=== PATIENT | female | born 1960 | race Caucasian/White ===

== ENCOUNTER 2019-07-25 10:24 | Observation (INO) ==
[2019-07-20 12:10] LABS: Basophils # (auto) 0.02 K/uL (0-0.2); Basophils % (auto) 0.5 %; Eosinophils # (auto) 0.12 K/uL (0-0.5); Eosinophils % (auto) 3.1 %; Hematocrit (blood only) 33.5 % (37-47); Hemoglobin 10.9 g/dL (12.0-16.0); Immature Granulocytes # (auto) 0.02 K/uL (0.00-0.02); Immature Granulocytes % (auto) 0.5 %; Lymphocytes % (auto) 28.1 %; Mean Corpuscular Hemoglobin 31.7 pg (25-34); Mean Corpuscular Hgb Conc 32.5 g/dL (32-36); Mean Corpuscular Volume 97.4 fL (80-100); Mean Platelet Volume 9.9 fL (7.4-10.4); Monocytes # (auto) 0.51 K/uL (0.11-0.59); Neutrophils # (auto) 2.14 K/uL (1.4-6.5); Neutrophils % (auto) 54.8 %; Platelet Count 334 K/uL (130-400); RDW Coefficient of Variation 14.6 % (11.5-14.5); RDW Standard Deviation 52.2 fL (36.4-46.3); Red Blood Count 3.44 M/uL (4.2-5.4); White Blood Count 3.91 K/uL (4.8-10.8)
[2019-07-20 12:37] LABS: BUN Creatinine Ratio 16.2 (10-20); Blood Urea Nitrogen 28 mg/dl (7-18); Calcium 9.2 mg/dl (8.5-10.1); Carbon Dioxide 26 mmol/L (21-32); Chloride 110 mmol/L (98-107); Est GFR (African American) 35.8; Est GFR (Non-African American) 30.9; Glucose 98 mg/dl (70-99); Potassium 4.2 mmol/L (3.5-5.1); Sodium 139 mmol/L (136-145)
[2019-07-20 13:05] LABS: Appearance Urine Clear (Clear); Bacteria Urine Automated Negative (Negative); Bilirubin Urine Negative (Negative); Blood Urine Negative (Negative); Color Urine Yellow; Epithelial Cell Urine Auto >30 /lpf (0-5); Glucose Urine UA Negative (Negative); Ketones Urine Negative (Negative); Leukocyte Esterase Urine Trace (Negative); Nitrite Urine Negative (Negative); Protein Urine Negative (Negative); RBC Urine Automated 0-4 /hpf (0-4); Specific Gravity Urine 1.019 (1.000-1.030); Urobilinogen Urine Negative (Negative)
--- NOTE | 2019-07-23 11:56 | Anesthesiology Consultation ---
Date of Service July 23, 2019 Assessment & Plan (1) Encounter for pre-operative examination: Chart Review Chart Review: Acceptable Risk for Surgery and Patient NOT seen in Pre Admission Testing Preop labs showed decreased renal function (patient at baseline) as well as new onset mild anemia and leukopenia. Will leave to anesthesia discretion if repeat CBC needed DOS. Last seen by nephrology 06/05/19= creat typically 1.7-1.8 secondary to IgA nephropathy. Pt is currently back to baseline after acute kidney injury several months ago. Will continue to monitor labs, BP, volume status. F/u six months Consults Requested none History Surgery Operation Date: 07/25/19 11:35 Proposed Procedures p Right L5-S1 Microdiscecotomy - Connor Regan, Height/Weight Height: 5 ft 6.5 in Weight: 70.307 kg Allergies Allergy/AdvReac Type Severity Reaction Status Date / Time No Known Drug Allergies Allergy Verified 07/25/19 10:52 Medications Home Medications Medication Instructions Recorded Confirmed Last Taken promethazine 25 mg PO Q6H PRN 10/23/18 07/25/19 03/27/19 08:00 linaclotide 145 mcg capsule 145 mcg PO DAILY PRN #90 cap 12/26/18 07/25/19 07/11/19 diclofenac sodium 2 g TOPICAL QID PRN 03/26/19 07/25/19 Unknown verapamil 20 mg PO 1200 03/26/19 07/23/19 03/27/19 08:00 valacyclovir 1 gram tablet 1,000 mg PO DAILY PRN #30 tab 03/30/19 07/25/19 Unknown ergocalciferol (vitamin D2) 1,250 50,000 units PO WEEKLY #12 cap 06/05/19 07/25/19 07/24/19 12:00 mcg (50,000 unit) capsule medical marijuana #1 ea 06/12/19 07/23/19 Unknown hydrocodone 5 mg-acetaminophen 325 1 tab PO BID PRN #30 tab 06/13/19 07/25/19 Unknown mg tablet mupirocin calcium 2 % topical cream 1 applic TOPICAL BID PRN #30 gm 06/20/19 07/25/19 Unknown trazodone 100 mg tablet 200 mg PO HS #180 tab 07/04/19 07/25/19 07/24/19 23:30 doxycycline hyclate 100 mg PO QAM 07/23/19 07/25/19 Unknown fenofibrate nanocrystallized 145 mg PO 1200 07/23/19 07/25/19 07/24/19 12:00 gabapentin 300 mg PO BID 07/23/19 07/25/19 07/24/19 23:30 lisinopril 10 mg PO 1200 07/23/19 07/25/19 07/24/19 12:00 omeprazole 40 mg PO 1200 07/23/19 07/25/19 07/24/19 12:00 venlafaxine 150 mg PO 1200 07/23/19 07/25/19 07/24/19 12:00 Active Medications Generic Name Dose Route Start Last Admin Trade Name Freq PRN Reason Stop Dose Admin Acetaminophen 1,000 mg 07/25/19 06:00 07/25/19 11:03 Tylenol PO 07/25/19 18:00 1,000 mg PREOP NORMA Administration Celecoxib 200 mg 07/25/19 06:00 07/25/19 11:03 Celebrex PO 07/25/19 18:00 200 mg PREOP NORMA Administration Dexamethasone 8 mg 07/25/19 06:00 07/25/19 11:03 Decadron PO 07/25/19 18:00 8 mg PREOP NORMA Administration Gabapentin 600 mg 07/25/19 06:00 07/25/19 11:04 Neurontin PO 07/25/19 18:00 600 mg PREOP NORMA Administration Lactated Ringer's 1,000 mls @ 15 mls/hr 07/25/19 06:00 07/25/19 11:03 Lr IV 07/26/19 05:59 15 mls/hr .Q24H NORMA Administration Past Medical History Medical History Anemia Anxiety Chronic back pain CKD (chronic kidney disease), stage III Depression GERD without esophagitis Gout History of anesthesia reaction "has a high tolerance to anesthesia and wakes up during surgery" History of right breast cancer 2004--sx, chemo, radiation Hyperlipidemia Hypertension IgA nephropathy, chronic Lumbar disc herniation Medical marijuana use 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, radiation Psoriatic arthritis hx of- on Cimzia in the past but d/'philip after adenocarcinoma of palate Raynaud's phenomenon without gangrene Tachycardia HAPPENED X1 PER PATIENT NONE SINCE Thyroid nodule Past Family History Family History Mother Family history of diabetes mellitus Myocardial infarction Sister Family history of diabetes mellitus Grandfather (Paternal) Family history of diabetes mellitus Grandmother (Paternal) Family history of diabetes mellitus Aunt Family history of diabetes mellitus Uncle Family hx of colon cancer Unknown Sinusitis Hypertension Cardiac disorder Cancer Colon cancer Lymphoma Myocardial infarction Father Lymphoma Other No family history of adverse response to anesthesia Past Surgical History Surgical History History of Achilles tendon repair x4--right foot--hardware in place History of Achilles tendon repair x1 on left History of carpal tunnel surgery of right wrist History of cholecystectomy History of colonoscopy with polypectomy History of dilatation and curettage History of esophageal dilatation History of esophagogastroduodenoscopy (EGD) History of hysterectomy History of lumpectomy of right breast 2003/2005 (benign at that time) History of open reduction and internal fixation (ORIF) procedure right wrist--hardware removed History of phacoemulsification of cataract of both eyes with intraocular lens implantation History of right breast biopsy malignant History of surgery excision of cancer of soft palate History of tonsillectomy Status post biopsy of kidney Status post biopsy of thyroid gland benign nodule Social History Smoking Status: Former smoker Do You Dip or Chew Tobacco: No Smoking End Date: 10 YRS AGO Hx Alcohol Use: No Alcohol type: beer alcohol intake frequency: holidays/special occasions only Hx Substance Use: No substance use type: marijuana Substance Use Type Other:: HAS MEDICAL MARIJUANA CARD> USES AT HS Last Used Substance: Days (ago) Physical Exam Vital Signs Last Vital Signs Temp 36.7 C 07/25/19 11:07 Pulse 88 07/25/19 11:07 Resp 18 07/25/19 11:07 BP 105/67 07/25/19 11:07 Pulse Ox 94 07/25/19 11:07 Testing Laboratory Results 07/20/19 11:42 07/20/19 11:42 Urine Color Yellow 07/20/19 11:52 Urine Appearance Clear (Clear) 07/20/19 11:52 Urine pH 5.0 (4.5-7.5) 07/20/19 11:52 Ur Specific [place] 1.019 (1.000-1.030) 07/20/19 11:52 Urine Protein Negative (Negative) 07/20/19 11:52 Urine Glucose (UA) Negative (Negative) 07/20/19 11:52 Urine Ketones Negative (Negative) 07/20/19 11:52 Urine Nitrite Negative (Negative) 07/20/19 11:52 Ur Leukocyte Esterase Trace (Negative) H 07/20/19 11:52 Urine WBC (Auto) 1-5 /hpf (0-5) 07/20/19 11:52 Urine RBC (Auto) 0-4 /hpf (0-4) 07/20/19 11:52 U Hyaline Cast (Auto) 1-5 /lpf (0-5) 07/20/19 11:52 U Epithel Cells (Auto) >30 /lpf (0-5) H 07/20/19 11:52 Urine Bacteria (Auto) Negative (Negative) 07/20/19 11:52 Electrocardiogram Date: 07/20/19 Findings: + NSR @ (66) Chest X-Ray Date: 07/20/19 Findings: + NAD
--- NOTE | 2019-07-23 12:38 | History & Physical Report ---
Date of Service July 23, 2019 Assessment & Plan (1) Lumbar disc herniation with radiculopathy: This time the patient has noted steady decline in her function and strength involving the right lower extremity. She is unable to ambulate using a wheelchair most of the time. She has marked strength deficits that she states are progressive in nature affecting the right lower extremity. Subsequently I am recommending urgent lumbar laminotomy and decompression of the nerves. Hopefully urgent decompression will allow the nerves to recover with time and physical therapy that she will be up ambulate independently in the future. Course benefits pros cons alternatives were outlined in detail. We are planning for an L5-S1 lumbar laminotomy on the right. Present on Admission?: Yes History of Present Illness Chief Complaint: Back with left leg pain and weakness Primary Care Provider: Danilo Freeman, DO * This is a 59-year-old female that presents with's severe right leg pain. This began several months ago and has progressed. She is now unable to ambulate secondary to the leg giving way. She has undergone 3 epidural injections which provided very minimal relief. Allergies Allergy/AdvReac Type Severity Reaction Status Date / Time No Known Drug Allergies Allergy Verified 07/23/19 10:46 Home Medications Home Medications Medication Instructions Recorded Confirmed Type promethazine 25 mg PO Q6H PRN 10/23/18 07/23/19 History linaclotide 145 mcg capsule 145 mcg PO DAILY PRN #90 cap 12/26/18 07/23/19 Rx diclofenac sodium 2 g TOPICAL QID PRN 03/26/19 07/23/19 History verapamil 20 mg PO 1200 03/26/19 07/23/19 History valacyclovir 1 gram tablet 1,000 mg PO DAILY PRN #30 tab 03/30/19 07/23/19 Rx ergocalciferol (vitamin D2) 1,250 50,000 units PO WEEKLY #12 cap 06/05/19 07/23/19 Rx mcg (50,000 unit) capsule medical marijuana #1 ea 06/12/19 07/23/19 History hydrocodone 5 mg-acetaminophen 325 1 tab PO BID PRN #30 tab 06/13/19 07/23/19 Rx mg tablet mupirocin calcium 2 % topical cream 1 applic TOPICAL BID PRN #30 gm 06/20/19 07/23/19 Rx trazodone 100 mg tablet 200 mg PO HS #180 tab 07/04/19 07/23/19 Rx doxycycline hyclate 100 mg PO QAM 07/23/19 07/23/19 History fenofibrate nanocrystallized 145 mg PO 1200 07/23/19 07/23/19 History gabapentin 300 mg PO BID 07/23/19 07/23/19 History lisinopril 10 mg PO 1200 07/23/19 07/23/19 History omeprazole 40 mg PO 1200 07/23/19 07/23/19 History venlafaxine 150 mg PO 1200 07/23/19 07/23/19 History Past Med/Surg History Medical History (Updated 07/23/19 @ 12:36 by Connor Regan DO) Anemia Anxiety Chronic back pain CKD (chronic kidney disease), stage III Depression GERD without esophagitis Gout History of anesthesia reaction "has a high tolerance to anesthesia and wakes up during surgery" History of right breast cancer 2003--sx, chemo, radiation Hyperlipidemia Hypertension IgA nephropathy, chronic Lumbar disc herniation Medical marijuana use 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, radiation Psoriatic arthritis hx of- on Cimzia in the past but d/'philip after adenocarcinoma of palate Raynaud's phenomenon without gangrene Tachycardia HAPPENED X1 PER PATIENT NONE SINCE Thyroid nodule Surgical History History of Achilles tendon repair x4--right foot--hardware in place History of Achilles tendon repair x1 on left History of carpal tunnel surgery of right wrist History of cholecystectomy History of colonoscopy with polypectomy History of dilatation and curettage History of esophageal dilatation History of esophagogastroduodenoscopy (EGD) History of hysterectomy History of lumpectomy of right breast (benign at that time) History of open reduction and internal fixation (ORIF) procedure right wrist--hardware removed History of phacoemulsification of cataract of both eyes with intraocular lens implantation History of right breast biopsy malignant History of surgery excision of cancer of soft palate History of tonsillectomy Status post biopsy of kidney Status post biopsy of thyroid gland benign nodule Family History Mother Family history of diabetes mellitus Myocardial infarction Sister Family history of diabetes mellitus Grandfather (Paternal) Family history of diabetes mellitus Grandmother (Paternal) Family history of diabetes mellitus Aunt Family history of diabetes mellitus Uncle Family hx of colon cancer Unknown Sinusitis Hypertension Cardiac disorder Cancer Colon cancer Lymphoma Myocardial infarction Father Lymphoma Other No family history of adverse response to anesthesia Social History Preferred Language: [place] Communication Ability: Effective Inspector Plug Seam Required: No Beliefs That Will Affect Care: None Current Living Situation: Spouse Feels Safe at Home: Yes Smoking Status: Former smoker Second Hand Exposure: No ; Hx Alcohol Use: No Hx Substance Use: No Physical Exam Physical Exam: On exam patient does present in a wheelchair she is unable to stand without marked support. She exhibits strength deficits the right quadriceps dorsiflexion plantarflexion. Severe deficits to right plantar flexion. The left appears to be 5/5. No marked sensory deficits in the right lower extremity compared to the left. Heart is regular rate and rhythm Lungs clear to auscultation. Results & Data Diagnostic Findings MRI of the lumbar spine does demonstrate evidence of multilevel spondylosis disc protrusion herniation at L3-4 and L5-S1. Axial views demonstrate broad-based disc herniation L5-S1 with severe subarticular stenosis on the right with evidence of encroachment the traversing S1 and exiting L5 nerve root.
[~2019-07-25 10:24] MED LIST: ACETAMINOPHEN 500 MG TAB PO SCH; CEFAZOLIN 1000MG 1,000 MG/7.5 ML SYR IV SCH; CeleBREX 200 MG CAP PO SCH; GABAPENTIN 600 MG DOSE PO SCH; LR 15ML/HR IV SCH; dexAMETHasone 4 MG TAB PO SCH
[2019-07-25] MEDS ORDERED: ONDANSETRON INJ 2 MG/ML 2 ML VIAL IV PRN (12:04)
[2019-07-25] MEDS ORDERED: HYDROmorphone INJ 2 MG/ML SYR/VIAL IV PRN (12:04)
[2019-07-25] MEDS ORDERED: PROMETHAZINE HCL 12.5 MG in SODIUM CHLORIDE 0.9% 50 ML IV PRN (12:04)
[2019-07-25] MEDS ORDERED: ePHEDrine sulfate 50 MG/ML AMP IV PRN (12:04)
[2019-07-25] MEDS ORDERED: METOCLOPRAMIDE HCL INJ 5 MG/ML 2 ML VIAL IV PRN (12:04)
[2019-07-25] MEDS ORDERED: ATROPINE SULFATE 0.1 MG/ML 10ML SYR IV PRN (12:04)
[2019-07-25] MEDS ORDERED: fentaNYL citrate 100 MCG/2 ML VIAL IV PRN (12:04)
--- NOTE | 2019-07-25 13:05 | History & Physical Bridge Note ---
Date of Service July 25, 2019 History & Physical Bridge Note I have examined the patient, reviewed the History & Physical and in the interval since the performance of the History & Physical I have noted the following changes of clinical significance: no changes noted
[2019-07-25] MEDS ORDERED: MIDAZOLAM HCL 1 MG/ML 2ML VIAL ONE (13:22)
[2019-07-25] MEDS ORDERED: fentaNYL citrate 100 MCG/2 ML VIAL ONE ×2 (13:22→14:06)
[2019-07-25] MEDS ORDERED: ONDANSETRON INJ 2 MG/ML 2 ML VIAL ONE (13:23)
[2019-07-25] MEDS ORDERED: NEOSTIGMINE METHYLSULFATE 5 MG/5 ML SYR ONE (13:23)
[2019-07-25] MEDS ORDERED: PROPOFOL IV EMULSION 10 MG/ML 20 ML VIAL IV ONE (13:23)
[2019-07-25] MEDS ORDERED: LIDOCAINE HCL 2% 2 ML VIAL/AMP(20MG/ML) INFIL ONE (13:23)
[2019-07-25] MEDS ORDERED: ROCURONIUM BROMIDE 10 MG/ML 5 ML VIAL ONE (13:23)
[2019-07-25] MEDS ORDERED: GLYCOPYRROLATE 0.2 MG/ML VIAL ONE (13:23)
[2019-07-25] MEDS ORDERED: BACITRACIN INJ 50,000 UNIT VIAL ONE (13:46)
[2019-07-25] MEDS ORDERED: BUPIVACAINE/EPINEPHRINE 0.5% MPF 1:200,000 10 ML VIAL ONE (13:46)
[2019-07-25] MEDS ORDERED: HYDROmorphone INJ 2 MG/ML SYR/VIAL ONE (15:05)
[2019-07-25] MEDS ORDERED: OXYCODONE HCL IR 5 MG TAB (IMMEDIATE RELEASE) PO PRN ×2 (15:27)
[2019-07-25] MEDS ORDERED: HYDROmorphone INJ 0.5 MG/0.5 ML SYR IV PRN ×2 (15:27)
--- NOTE | 2019-07-25 15:27 | Operative Report ---
Post Operative Report Pre & Post Diagnosis Operation Date: 07/25/19 11:35 Pre-Op Diagnosis: Lumbar Disc Herniation Post-Op Diagnosis: Lumbar Disc Herniation I identified the patient and participated in the time-out.: Yes Procedure Operation Date: 07/25/19 11:35 Actual Procedures Laminotomy L5-S1 on the right with medial facetectomy. Surgeon Connor Regan, Boat Oar Maker Carmela Urban Estimated Blood Loss 10 Findings Consistent with Post-Op Diagnosis Specimens None Indications This is a 59-year-old female that presents with severe right leg pain and weakness. She was unable to ambulate using a wheelchair for most of her travel. Subsequently we recommended urgent laminotomy and decompression of the compressed nerve root. Description of Procedure Patient was met with identified informed consent obtained. Patient was then taken to the operative suite underwent an patient placed in a prone position the Brayden table on top of the Reji frame. All bony prominences well-padded eyes inspected to ensure no external pressure placed upon the. This point the lumbar spine was prepped and draped in normal sterile fashion. With the assistance of fluoroscopy identified the L5-S1 disc space and a small midline incision was created overlying his region. Sharp dissection with the assistance of Bovie electrocautery was performed down to and exposing the interlaminar space at L5- S1 on the right. Self-retaining retractors placed. Then performed a small laminotomy including medial facetectomy of L5-S1 the right. I excised the lateral portion of ligamentum flavum to expose it markedly compressed traversing S1 nerve root. I noted significant adhesions to the disc herniation beneath the root. I was able to mobilize it medially with some work and any loose fragments were removed. The root seem to have significant decompression mobilization when I was complete. I then copiously irrigated incision closed with 1 Vicryl in the fascia 2-0 Vicryl subcutaneously and 4 Monocryl for final skin closure. Patient awakened taken to PACU stable condition. Please note Carmela Urban was present at the entire procedure involved the patient positioning complex portions of the surgery and final skin closure. I attest to the content of the Intraoperative Record and any orders documented therein. Any exceptions are noted below.
--- NOTE | 2019-07-25 15:36 | Fluoroscopy Report ---
FL spine 1V any level CLINICAL HISTORY: 59 years-old Female presenting with RIGHT L5-S1 MICRODISCECTOMY. TECHNIQUE: 1 fluoroscopic image(s) recorded as part of an intraoperative procedure. COMPARISON: MR lumbar spine from 03/07/2019. FINDINGS/IMPRESSION: Surgical instrumentation projects over the L5-S1 level. Please see surgical report for further details. Fluoroscopy dosage (mGy): Not available. Fluoroscopy time: 7 seconds. Number or time of high level fluoroscopy (HLF), digital spot, or digital subtraction images: 0. ACT 112: Negative or not required by law. Electronically signed by: Tre Hammonds M.D. 07/25/2019 3:34 PM
[2019-07-25] MEDS ORDERED: HYDROmorphone INJ 1 MG/ML SYRINGE ONE (16:16)
[2019-07-25] MEDS ORDERED: FLOSEAL HEMOSTATIC MATRIX 10ML TOP ONE (16:20)
--- NOTE | 2019-07-25 16:47 | Anesthesiology Progress Note ---
Date of Service July 25, 2019 Anesthesia Post Procedure Vital Signs Vital Signs: Temp Pulse Pulse Resp BP Pulse Ox 07/25/19 16:35 36.4 C L 88 17 114/70 100 07/25/19 16:25 94 H 14 110/64 100 07/25/19 16:15 94 H 13 136/76 100 07/25/19 16:09 36.6 C 82 25 H 126/87 100 07/25/19 11:07 36.7 C 88 18 105/67 94 Pain Intensity Lower Back: Pain Intensity: 7 Transfer of Care Handoff Completed per policy Notes Mental Status: alert / awake / arousable and participated in evaluation Patient Amnestic to Procedure: Yes Nausea / Vomiting: adequately controlled Pain: adequately controlled Airway Patency, RR, SpO2: stable & adequate BP & HR: stable & adequate Hydration State: stable & adequate Anesthetic Complications: no major complications apparent
[2019-07-25] MEDS ORDERED: LINACLOTIDE 72 MCG CAPSULE PO PRN (20:57)
--- NOTE | 2019-07-25 20:59 | History & Physical Report ---
Date of Service July 25, 2019 Assessment & Plan (1) Lumbar disc herniation with radiculopathy: Pt is a 59yo with an extensive PMHx including IgA nephropathy, Hx of breast and soft palate cancer, CKD, lumbar disc herniation who was admitted for observation after being unresponsive after same day surgical laminectomy with Dr. Regan. Of note, she received a total of 4mg of Dilaudid liliam-op. Decreased Consciousness -Hx of pt with decreased consciousness post-op -On exam, pt AAOx3 -likely due to receiving in total Dilaudid 4mg -will admit overnight to tele for observation -q4h vital signs Laminectomy, post-op -Pt had laminectomy with Dr. Regan, same day surgery -will hold narcotics for pain -continue tylenol 1000mg q8h scheduled -continue Toradol 15mg IV q6h PRN- repeat Cr pending. Will discontinue if elevated. CKD -Last noted Cr elevated to 1.75 -continue LR @ 80cc/hr IgA Nephropathy -chronic Depression, Insomnia -continue home venlafaxine and trazodone HTN -continue home verapamil, lisinopril Hx of Cancer -s/p lumpectomy for breast cancer -s/p radiation for soft palate cancer -Hx of thyroid nodules FEN/GI: LR@ 80cc/hr, heart healthy diet DVT prophylaxis: SCDs CODE STATUS: Full Dispo: PCU/tele for q4h vitals/obs Admission and Anticipated Discharge Date Admission Date: 07/25/2019 History of Present Illness Primary Care Provider: Danilo Freeman, Pt is a 59yo with an extensive PMHx including IgA nephropathy, Hx of breast and soft palate cancer, CKD, lumbar disc herniation who was admitted for observation after being unresponsive after same day surgical laminectomy with Dr. Regan. Of note, she received a total of 4mg of Dilaudid liliam-op. Pt was having same day surgery with Dr. Regan, laminectomy for radiculopathy. Pt states she has been bothered by this for the last 6 months. After surgery, per nursing, she had reduced consciousness and was unable to be aroused. She eventually became verbal about 7:45PM. Per nursing she received a total of 4mg of Dilaudid liliam-op. Per request by anesthesiology, she was admitted overnight for observation. PMHx: As below PSH: tonsillectomy, lumpectomy, cholecystectomy, "wrist and foot surgery" Meds: As below Allergies: NKDA SH: Quit smoking 10 years ago, no alcohol use except recreationally, does medical marijuana for Hx of soft palate cancer. Lives at home with . Allergies Allergy/AdvReac Type Severity Reaction Status Date / Time No Known Drug Allergies Allergy Verified 07/25/19 10:52 Home Medications Home Medications Medication Instructions Recorded Confirmed Type promethazine 25 mg PO Q6H PRN 10/23/18 07/27/19 History linaclotide 145 mcg capsule 145 mcg PO DAILY PRN #90 cap 12/26/18 07/27/19 Rx diclofenac sodium 2 g TOPICAL QID PRN 03/26/19 07/27/19 History verapamil 20 mg PO 1200 03/26/19 07/27/19 History valacyclovir 1 gram tablet 1,000 mg PO DAILY PRN #30 tab 03/30/19 07/27/19 Rx ergocalciferol (vitamin D2) 1,250 50,000 units PO WEEKLY #12 cap 06/05/19 07/27/19 Rx mcg (50,000 unit) capsule medical marijuana #1 ea 06/12/19 07/27/19 History hydrocodone 5 mg-acetaminophen 325 1 tab PO BID PRN #30 tab 06/13/19 07/27/19 Rx mg tablet mupirocin calcium 2 % topical cream 1 applic TOPICAL BID PRN #30 gm 06/20/19 07/27/19 Rx trazodone 100 mg tablet 200 mg PO HS #180 tab 07/04/19 07/27/19 Rx doxycycline hyclate 100 mg PO QAM 07/23/19 07/27/19 History fenofibrate nanocrystallized 145 mg PO 1200 07/23/19 07/27/19 History gabapentin 300 mg PO BID 07/23/19 07/27/19 History lisinopril 10 mg PO 1200 07/23/19 07/27/19 History omeprazole 40 mg PO 1200 07/23/19 07/27/19 History venlafaxine 150 mg PO 1200 07/23/19 07/27/19 History hydrocodone-acetaminophen See Rx Instructions .ROUTE 07/25/19 07/27/19 Rx .COMPLEX PRN #15 tab Past Med/Surg History Medical History Anemia Anxiety Chronic back pain CKD (chronic kidney disease), stage III Depression GERD without esophagitis Gout History of anesthesia reaction "has a high tolerance to anesthesia and wakes up during surgery" History of right breast cancer 2004--sx, chemo, radiation Hyperlipidemia Hypertension IgA nephropathy, chronic Lumbar disc herniation Medical marijuana use 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, radiation Psoriatic arthritis hx of- on Cimzia in the past but d/'philip after adenocarcinoma of palate Raynaud's phenomenon without gangrene Tachycardia HAPPENED X1 PER PATIENT NONE SINCE Thyroid nodule Surgical History History of Achilles tendon repair x4--right foot--hardware in place History of Achilles tendon repair x1 on left History of carpal tunnel surgery of right wrist History of cholecystectomy History of colonoscopy with polypectomy History of dilatation and curettage History of esophageal dilatation History of esophagogastroduodenoscopy (EGD) History of hysterectomy History of lumpectomy of right breast (benign at that time) History of open reduction and internal fixation (ORIF) procedure right wrist--hardware removed History of phacoemulsification of cataract of both eyes with intraocular lens implantation History of right breast biopsy malignant History of surgery excision of cancer of soft palate History of tonsillectomy Status post biopsy of kidney Status post biopsy of thyroid gland benign nodule Family History Mother Family history of diabetes mellitus Myocardial infarction Sister Family history of diabetes mellitus Grandfather (Paternal) Family history of diabetes mellitus Grandmother (Paternal) Family history of diabetes mellitus Aunt Family history of diabetes mellitus Uncle Family hx of colon cancer Unknown Sinusitis Hypertension Cardiac disorder Cancer Colon cancer Lymphoma Myocardial infarction Father Lymphoma Other No family history of adverse response to anesthesia Social History Preferred Language: Jordanian Communication Ability: Effective Gardening Manager Required: No Beliefs That Will Affect Care: None Current Living Situation: Spouse Feels Safe at Home: Yes Smoking Status: Former smoker Second Hand Exposure: No ; Hx Alcohol Use: No Hx Substance Use: Yes substance use type: marijuana Substance Use Type Other:: medical marijuana Last Used Substance: Days (ago) Last Used Substance Other:: yesterday Review of Systems Constitutional: no fever, no chills and no sweats Eyes: no worsening vision Ear, Nose, Mouth, Throat: + dysphagia; no nasal congestion and no sore throat Respiratory: no cough, no chest congestion and no dyspnea Cardiovascular: no chest pain, no dyspnea, no palpitations and no lightheadedn ess Gastrointestinal: + dysphagia; no abdominal pain, no nausea, no vomiting, no constipation (but hurts when she stools), no diarrhea/loose stools and no blood in stools Genitourinary: no dysuria Musculoskeletal: + back pain Neurologic: no syncope, no headache(s) and no confusion Physical Exam Physical Exam: General: Alert, orientedx3. Skin: No noted rashes or bruises Psych: Appropriate mood and affect Neuro: No gross deficits HEENT: NC/AT, PERRLA, EOMI, oropharynx moist. Chest: Nontender to palpation. CV: RRR, Normal s1, s2. No murmurs appreciated Resp: Breath sounds clear bilaterally, no increased effort of breathing. No crackles/rhonchi/rales. Abdomen: Soft, nontender, nondistended. No guarding. No organomegaly appreciated. Extremities: Trace edema in lower extremities bilaterally. Results & Data Results & Data ([facility]) Vital Signs (Past 12 Hours) Vital Signs Temp Pulse Pulse Resp BP Pulse Ox 07/25/19 19:00 59 L 12 126/70 95 07/25/19 18:30 60 8 L 120/74 97 07/25/19 18:00 61 8 L 124/72 99 07/25/19 17:30 37 C 68 8 L 128/77 99 07/25/19 17:00 37 C 58 L 10 L 123/82 98 07/25/19 16:45 36.4 C L 87 17 106/62 96 07/25/19 16:35 36.4 C L 88 17 114/70 100 07/25/19 16:25 94 H 14 110/64 100 07/25/19 16:15 94 H 13 136/76 100 07/25/19 16:09 36.6 C 82 25 H 126/87 100 07/25/19 11:07 36.7 C 88 18 105/67 94 Supervising Physician Co-Signing Physician Notes Attending addendum: I have physically seen this patient, have supervised the medical residents activities, and agree with the H&P unless as otherwise noted. Assessment and Plan: Decreased responsiveness/postoperative hypoxia- Likely secondary to central nervous system depression from IV Dilaudid. Patient recovered significantly by time seen by medicine, therefore no Narcan given. Observe in monitored bed recurrent hypoxia and/or arrhythmia. Consult Dr. Regan for routine postoperative post laminectomy care. Continue all medications and orders as noted. Resident Activity Tracking Resident Involvement: Resident Care Provided Care Provided: Adult [facility] Medicine
[2019-07-25] MEDS ORDERED: GABAPENTIN 300 MG CAP PO SCH (21:00)
[2019-07-25] MEDS ORDERED: TRAZODONE HCL 100 MG TAB PO SCH (21:00)
[2019-07-25 21:19] LABS: Hematocrit (blood only) 33.4 % (37-47); Hemoglobin 10.5 g/dL (12.0-16.0); Immature Granulocytes # (auto) 0.02 K/uL (0.00-0.02); Immature Granulocytes % (auto) 0.2 %; Lymphocytes # (auto) 0.27 K/uL (1.2-3.4); Lymphocytes % (auto) 2.8 %; Mean Corpuscular Hemoglobin 31.3 pg (25-34); Mean Corpuscular Hgb Conc 31.4 g/dL (32-36); Mean Corpuscular Volume 99.7 fL (80-100); Monocytes # (auto) 0.11 K/uL (0.11-0.59); Monocytes % (auto) 1.1 %; Neutrophils % (auto) 95.9 %; Platelet Count 320 K/uL (130-400); RDW Coefficient of Variation 14.9 % (11.5-14.5); RDW Standard Deviation 54.4 fL (36.4-46.3); Red Blood Count 3.35 M/uL (4.2-5.4)
[2019-07-25 21:37] LABS: Albumin Level 3.2 gm/dl (3.4-5.0); BUN Creatinine Ratio 15.2 (10-20); Calcium 8.9 mg/dl (8.5-10.1); Creatinine Clr Calc Pharmacy 26.8 ml/min; Est GFR (African American) 26.1; Est GFR (Non-African American) 22.6; Potassium 4.5 mmol/L (3.5-5.1)
[2019-07-25 21:39] LABS: Albumin Globulin Ratio 0.8 (0.9-2); Bilirubin,Total 0.1 mg/dl (0.2-1); Globulin 4.3 gm/dl (2.5-4.0); Total Protein 7.5 gm/dl (6.4-8.2)
[2019-07-25] MEDS: ACETAMINOPHEN 500 MG TAB PO SCH (21:39)
[2019-07-25] MEDS: LACTATED RINGER'S 1,000 ML IV SCH (21:39)
[2019-07-25] MEDS: KETOROLAC TROMETHAMINE 15 MG/ML VIAL IV PRN (22:36)
[2019-07-26] MEDS ORDERED: HYDROCODONE/ACETAMOPHEN 5/325MG TAB PO PRN (00:57)
[2019-07-26] MEDS ORDERED: HYDROmorphone INJ 0.5 MG/0.5 ML SYR IV PRN (00:57)
--- NOTE | 2019-07-26 01:04 | Communication Note ---
Date of Service: July 26, 2019 Called about continued severe pain 7-7.5/10, patient has improved from previous sedation level, and pain has improved minimally with Tylenol and Toradol. Recent vitals BP 149/84, O2 95% on RA, RR 17. Given patient's home narcotic use, have elected at this time to restart 5mg [place] BID PRN for pain, with 0.2mg Dilaudid Q3h PRN for breakthrough pain. Will monitor VS closely given the new addition of narcotics in this patient.
[2019-07-26 03:04] VITALS: TEMP 98.1
[2019-07-26] MEDS: ACETAMINOPHEN 500 MG TAB PO SCH (06:09)
[2019-07-26] MEDS: KETOROLAC TROMETHAMINE 15 MG/ML VIAL IV PRN (06:31)
[2019-07-26 07:11] VITALS: BP 120/72; PULSE 58; O2SAT 96
[2019-07-26] MEDS ORDERED: GABAPENTIN 300 MG CAP PO SCH (08:00)
[2019-07-26] MEDS: LACTATED RINGER'S 1,000 ML IV SCH (08:21)
--- NOTE | 2019-07-26 08:54 | Discharge Summary ---
Date of Service July 26, 2019 Admission HPI Per Admitting Provider Pt is a 59yo with an extensive PMHx including IgA nephropathy, Hx of breast and soft palate cancer, CKD, lumbar disc herniation who was admitted for observation after being unresponsive after same day surgical laminectomy with Dr. Regan. Of note, she received a total of 4mg of Dilaudid liliam-op. Pt was having same day surgery with Dr. Regan, laminectomy for radiculopathy. Pt states she has been bothered by this for the last 6 months. After surgery, per nursing, she had reduced consciousness and was unable to be aroused. She eventually became verbal about 7:45PM. Per nursing she received a total of 4mg of Dilaudid liliam-op. Per request by anesthesiology, she was admitted overnight for observation. PMHx: As below PSH: tonsillectomy, lumpectomy, cholecystectomy, "wrist and foot surgery" Meds: As below Allergies: NKDA SH: Quit smoking 10 years ago, no alcohol use except recreationally, does medical marijuana for Hx of soft palate cancer. Lives at home with . Principal Diagnosis Hernia nucleus pulposus L5-S1 with radiculopathy and motor deficits Discharge Data Allergies Allergy/AdvReac Type Severity Reaction Status Date / Time No Known Drug Allergies Allergy Verified 07/25/19 10:52 Consultations 07/25/19 18:44 Consult Medical [Consult Internal Medicine] Stat Procedures Performed Operation Date: 07/25/19 11:35 Actual Procedures p Right L5-S1 Microdiscectomy(Right) - Connor Regan, Ordered Studies 07/25/19 11:35 FL fluoroscopy <1hr Routine FL spine 1V any level Routine Hospital Course (1) Lumbar disc herniation with radiculopathy: Patient went lumbar laminotomy but postoperatively had marked difficulty with apnea. Subsequently she was admitted overnight. The next morning she is feeling markedly improved. Vital signs are stable. Strength is intact and improving to testing the right lower extremity. Her pain is markedly improved. Subsequently was discharged home. Discharge orders instructions from the chart for further review. Total Time Total Time Spent Total Time Spent (In Minutes): 20 minutes Discharge Plan Discharge Items Patient Disposition: Home - Self-Care Reason For Visit: POST MICRODISCETOMY,POST-OP HYPOXIA Discharge Diagnosis: Lumbar disc herniation with radiculopathy Activity: As commented below Non-emergency contact: Primary Care Provider Call non-emergency contact if: you have any medication questions Follow-up/Referrals: Danilo Freeman, [Primary Care Provider] - Diet: Regular Addtl Attending Provider Instructions: ACTIVITY RECOMMENDATIONS: SELF CARE INSTRUCTIONS AFTER A LAMINECTOMY 1. No prolonged sitting (less than 30 minutes for the first 3 weeks after surgery). 2. No bending, lifting more than 5 pounds, or twisting (roll like a log when turning in bed). 3. You may shower 3 days after surgery if no drainage from wound. Thoroughly dry wound. Do not soak in the tub. 4. Please walk as much as you can for exercise. Gradually increase the distance that you walk as your endurance increases. 5. You may drive in 7-10 days if you are comfortable and no longer requiring pain medications. SPECIAL CARE INSTRUCTIONS: VERY IMPORTANT TO READ AND REVIEW A. Your surgical incision has been closed with a cosmetic suture under the skin that will dissolve in about 6 weeks. In 14 days, you can use a pair of clean scissors and cut the suture that is left outside of the skin at the ends of your incision. B. Complications are uncommon, but please contact us if you have any signs or symptoms of: 1. wound infection (fever higher than 102.5 degrees F, redness, separation of wound, drainage, or increasing pain from the incision) 2. blood clots in legs (pain, swelling, redness and warmth in legs) 3. urinary tract infection (fever higher than 102.5 degrees, burning upon urination or increased frequency of urination) 4. nerve problems (inability to walk on your toes or heels, numbness, loss of bowel or bladder control) 5. any other symptoms that concern you. C. Please call the office at if you have any concerns or questions about your operation or recovery. MANAGING PAIN AFTER SPINAL SURGERY 1. Narcotic medication is intended for short-term use and will be provided for surgical pain. Surgical pain usually lasts for a period of 4-6 weeks. Narcotic medication includes Percocet, Vicodin, Darvocet, Tylenol #3 or Lortab. 2. Longer-term pain is more appropriately treated with non-narcotic medication such as Tylenol ES. 3. Muscle spasm is not appropriately treated with narcotics. Muscle relaxers such as Soma, Flexeril or Skelaxin can be used along with Tylenol ES. 4. Remember that we all live with some "aches and pains". This is not unusual or uncommon after an injury or as we get older. 5. We will provide appropriate medication within the normal guidelines of their prescribed use. We will also be very cautious and aware of potential abuse and extended duration of patients' medication needs. 6. Please allow 2-3 days to process refills. Prescriptions will not be mailed but must be picked up at the office. FOLLOW UP VISIT: Keep your scheduled follow-up appointment. Any questions, please call the office at . Pending Studies at Discharge: No Stand-Alone Forms: Anesthesia/Sedation, Adult, [facility] Medications and DC Order Prescriptions: New hydrocodone-acetaminophen 5-325 mg tablet See Rx Instructions .ROUTE .COMPLEX PRN (Reason: pain) Qty: 15 RF: 0 Continued (DME) medical marijuana dropperette Qty: 1 RF: 0 hydrocodone-acetaminophen 5-325 mg tablet 1 tab PO BID PRN (Reason: pain) Qty: 30 RF: 0 valacyclovir 1 gram tablet 1,000 mg PO DAILY PRN (Reason: HSV) Qty: 30 RF: 5 mupirocin calcium 2 % cream 1 applic TOPICAL BID PRN (Reason: affected areas between affected toes) Qty: 30 RF: 1 trazodone 100 mg tablet 200 mg PO HS Qty: 180 RF: 1 Linzess 145 mcg capsule 145 mcg PO DAILY PRN (Reason: Abdominal Discomfort) Qty: 90 RF: 0 ergocalciferol (vitamin D2) 1,250 mcg (50,000 unit) capsule 50,000 units PO WEEKLY Qty: 12 RF: 0 promethazine 25 mg Tablet 25 mg PO Q6H PRN (Reason: Nausea) RF: 0 verapamil 40 mg tablet 20 mg PO 1200 RF: 0 diclofenac sodium 1 % gel 2 g TOPICAL QID PRN (Reason: Pain) RF: 0 doxycycline hyclate 100 mg capsule 100 mg PO QAM RF: 0 venlafaxine 150 mg capsule,extended release 24hr 150 mg PO 1200 RF: 0 omeprazole 40 mg capsule,delayed release(DR/EC) 40 mg PO 1200 RF: 0 lisinopril 10 mg tablet 10 mg PO 1200 RF: 0 gabapentin 300 mg capsule 300 mg PO BID RF: 0 fenofibrate nanocrystallized 145 mg tablet 145 mg PO 1200 RF: 0 Discharge Orders: Discharge Order (Routine); Ordered 07/25/19 Ordered By: Connor Aguilera/Other Patient Handouts: DVT Post Op Prevention Admission Data Admit Date/Time: 07/25/19 18:42 Attending Provider: Shahram Bundy Admit Provider: Annamarie Winkler Primary Care Provider: Danilo Freeman Other Providers: Connor Regan
[2019-07-26] MEDS ORDERED: VERAPAMIL HCL 40 MG TAB PO SCH (12:00)
[2019-07-26] MEDS ORDERED: lisinopriL 10 MG TAB PO SCH (12:00)
[2019-07-26] MEDS ORDERED: PANTOprazole 40 MG TAB PO SCH (12:00)
[2019-07-26] MEDS ORDERED: VENLAFAXINE HCL XR 150 MG CAPXR PO SCH (12:00)
--- NOTE | 2019-07-29 06:29 | Billing Data ---
Date of Service July 29, 2019 Coding Level of Care Code 42289 OBS Care - Level 3
== END 2019-07-26 10:07 | disposition home or self-care (01) ==
LOC: ASU 10:24 → 3E 10:24 → SUATTDRO 18:42

== ENCOUNTER 2021-11-25 05:41 | Observation (INO) ==
[2021-11-25] MEDS ORDERED: LIDOCAINE/EPINEPH/TETRACAINE 1 EA SYR EXT STA (06:01)
[2021-11-25] MEDS ORDERED: MoRPHine SULFATE 2 MG/ML CARP IV PRN (06:01)
[2021-11-25] MEDS ORDERED: DIPHTHERIA/TETANUS/PERTUSSIS 0.5 ML SYR/VIAL IM ONE (06:01)
[2021-11-25] MEDS ORDERED: SODIUM CHLORIDE 0.9% 1000ML 1,000 ML IV SCH (06:15)
[2021-11-25 06:31] LABS: Basophils # (auto) 0.01 K/uL (0-0.2); Basophils % (auto) 0.2 %; Eosinophils # (auto) 0.05 K/uL (0-0.50); Eosinophils % (auto) 0.9 %; Hematocrit (blood only) 31.9 % (34.1-44.9); Hemoglobin 10.5 g/dl (12.0-16.0); Immature Granulocytes # (auto) 0.03 K/uL (0.00-0.02); Immature Granulocytes % (auto) 0.5 %; Lymphocytes # (auto) 0.99 K/uL (1.2-3.4); Lymphocytes % (auto) 17.1 %; Mean Corpuscular Hemoglobin 30.3 pg (25.0-34.0); Mean Corpuscular Hgb Conc 32.9 g/dL (32.0-36.0); Mean Corpuscular Volume 92.2 fL (80.0-100.0); Mean Platelet Volume 10.7 fL (9.4-12.3); Monocytes # (auto) 0.68 K/uL (0.24-0.82); Monocytes % (auto) 11.7 %; Neutrophils # (auto) 4.04 K/uL (1.4-6.5); Neutrophils % (auto) 69.6 %; Platelet Count 277 K/uL (130-400); RDW Coefficient of Variation 14.5 % (11.5-14.5); RDW Standard Deviation 49.1 fL (36.4-46.3); Red Blood Count 3.46 M/uL (3.93-5.22)
[2021-11-25 07:03] LABS: Alanine Aminotransferase 16 U/L (7-52); Albumin Globulin Ratio 0.9 (0.9-2); Alkaline Phosphatase 156 U/L (34-104); Anion Gap 12 (3-11); Aspartate Aminotransferase 23 U/L (13-39); BUN Creatinine Ratio 9.5 (10-20); Bilirubin,Total 0.5 mg/dl (0.2-1.0); Blood Urea Nitrogen 18 mg/dl (6-23); Calcium 8.5 mg/dl (8.5-10.1); Carbon Dioxide 16 mmol/L (21-32); Chloride 106 mmol/L (98-107); Est GFR (Non-African American) 27.6 ml/min; Globulin 3.3 gm/dl (2.5-4.0); Glucose 129 mg/dl (70-99(Fasting)); Potassium 3.3 mmol/L (3.5-5.1); Sodium 134 mmol/L (136-145); Total Protein 6.3 gm/dl (6.0-8.3)
[2021-11-25] MEDS ORDERED: ACETAMINOPHEN 1,000 MG/100 ML VIAL IV STA (07:07)
[2021-11-25] MEDS ORDERED: fentaNYL citrate 100 MCG/2 ML VIAL IV STA (07:07)
[2021-11-25] MEDS ORDERED: OPTIRAY 320 125ml IV ONE (08:14)
--- NOTE | 2021-11-25 08:27 | CT Scan Report ---
CT head/brain wo con CLINICAL HISTORY: Trauma Technique: Contiguous axial CT images of the head were acquired from the base of the skull to the shauna shona without intravenous contrast administration. Images were viewed in brain, subdural and bone [facility] . Automated dose lowering techniques and/or adjustment according to patient size were utilized for this exam. Comparison: None available at the time of this dictation. Findings: The ventricles, basal cisterns, and cerebral sulci are normal. There is no acute intracranial hemorrh age or evidence of acute territorial infarction. Neither mass effect, shift of the midline structures , nor abnormal extra-axial fluid collections are shown. Imaged portions of the paranasal sinuses and mastoid air cells are clear. The orbits appear normal. There are no acute fractures of the calvaria or scalp swelling. Impression: No acute intracranial hemorrhage, no evidence of acute territorial infarction or other acute intracra nial disease process. ACT 112: Negative or not required by law. Electronically signed by: Adonay Stahl M.D. 11/25/2021 8:26 AM
--- NOTE | 2021-11-25 08:37 | CT Scan Report ---
CT facial bones wo con CLINICAL HISTORY: Trauma TECHNIQUE: Multidetector row helical CT of the maxillofacial bones was performed without administrati on of intravenous contrast, and processed with bone and soft tissue algorithms. Coronal and sagittal reformations were obtained. Automated dose lowering techniques and/or adjustment according to patient size were utilized for this exam. Comparison: None available at the time of this dictation. FINDINGS: Nasal bones are normal. The mandible is intact. The temporomandibular joints are anatomically aligned . There is suggestion of defects in a few teeth, particularly incisors. Zygomatic arches are intact. The globes are normal and symmetric, without proptosis, obvious disruption or lens dislocation. Ther e is no orbital radiopaque foreign body. The orbital dudley are intact. The retrobulbar fat is without evidence of disruption. Extraocular muscles are normal and symmetric. Optic nerve sheath complexes are normal in course and caliber. Imaged portions of the paranasal sinuses and mastoid air cells are clear. IMPRESSION: No acute fracture of the facial bones. There is suggestion of defect of the incisors compatible with clinical history of chipped tooth. The temporal mandibular joints are normally aligned. ACT 112: Negative or not required by law. Electronically signed by: Adonay Stahl M.D. 11/25/2021 8:35 AM
--- NOTE | 2021-11-25 08:45 | CT Scan Report ---
CT OF THE CERVICAL SPINE WITHOUT CONTRAST CLINICAL HISTORY: Trauma. COMPARISON STUDY: MRI of the cervical spine October 10, 2017. TECHNIQUE: Helical axial images of the cervical spine were obtained without IV contrast. Sagittal a nd coronal reconstructions were viewed. Automated exposure control was utilized for the study. A do se lowering technique was utilized adhering to the principles of ALARA. FINDINGS: There is mild reversal of the normal cervical lordosis. Vertebral body heights are maintain ed. No acute cervical spine fracture or subluxation is present. There is no prevertebral edema. Facet joints are intact. Moderate multilevel degenerative changes are present. Diffuse sclerosis of the v isualized skeletal structures is noted. IMPRESSION: 1. No acute cervical spine fracture or subluxation. 2. Diffuse sclerosis of visualized skeletal structures. Although nonspecific, this is similar to prio r imaging studies and therefore is likely metabolic. A neoplastic etiology is within the differential but considered less likely. ACT 112: Negative or not required by law. Electronically signed by: Olman Osei M.D. 11/25/2021 8:44 AM
--- NOTE | 2021-11-25 09:06 | CT Scan Report ---
CT ANGIOGRAPHY OF THE CHEST, PULMONARY EMBOLUS PROTOCOL CLINICAL HISTORY: [place]. COMPARISON STUDY: Chest CT November 23, 2021. PET/CT December 26, 2017. TECHNIQUE: Following IV administration of 120 mL of Optiray, helical axial images of the chest were o btained utilizing the pulmonary embolus protocol. Maximal intensity projections and sagittal and cor onal reformats were viewed on an independent 3D workstation. IV contrast was administered without co mplication. Automated exposure control was utilized for the study. A dose lowering technique was ut ilized adhering to the principles of ALARA. FINDINGS: No pulmonary emboli are identified. There is no thoracic aortic dissection. There is a tra ce pericardial effusion. No enlarged thoracic lymph nodes are present. Central airways are patent. No te is made of a 2.2 x 1.1 cm irregular subpleural opacity within the right lower lobe on axial image 94 of 278. This is new since PET/CT of December 26, 2017. No pneumothorax or pleural effusion is pre sent. No acute fracture is identified within visualized portions of the bony thorax. There are severa l old bilateral rib fractures. Diffuse sclerosis of visualized skeletal structures is similar to PET/ CT of December 26, 2017. IMPRESSION: 1. No pulmonary emboli identified. 2. No acute traumatic findings within the chest. 3. 2.2 x 1.1 cm irregular subpleural opacity within the right lower lobe. This is new since PET/CT of December 26, 2017. Scarring is favored. A neoplastic etiology is within the differential although c onsidered less likely. Short-term follow-up chest CT in 3 months is recommended for reassessment. 4. Sclerosis of visualized skeletal structures. Given stability since PET/CT of December 26, 2017, a metabolic etiology is favored. Neoplastic process is considered less likely. ACT 112: Negative or not required by law. Electronically signed by: Olman Osei M.D. 11/25/2021 9:04 AM
--- NOTE | 2021-11-25 09:17 | Emergency Department Note ---
Impression & Plan Syncope and collapse, Chin laceration, Hypokalemia, Hypomagnesemia ED Provider Note CHIEF COMPLAINT: Syncope, chin laceration, broken tooth HISTORY OF PRESENT ILLNESS: This 61-year-old female patient presents to the emergency department after a syncopal episode while ambulating to the bathroom last night. Patient states she has been sick for the better part of 2 to 3 months. When she gets up to go to the bathroom at night she tends to pass out. She typically takes her walker but last night she did not. She lost consciousness in the bathroom and hit the tile floor with her face. She states she pushed in her front teeth and broke her right lateral incisor. She also sustained a chin laceration. Patient's work-up so far has included gastroenterology as well as ENT. She does have a history of breast cancer and head and neck cancer. She states she has unintentionally lost 40 pounds over the course of this illness. Patient states she is unable to eat without subsequent vomiting. She denies any blood in her emesis or stools. REVIEW OF SYSTEMS: A review of systems was performed with positives and pertinent negatives listed in the history of present illness. 10 systems were reviewed and are otherwise negative. ALLERGIES: see below MEDICATIONS: see below PMH: see below SOCIAL HISTORY: see below DDx: Closed head injury, facial fracture, intracranial hemorrhage, neck injury, malignancy, infectious etiology, dehydration, metabolic abnormality, hypo/hyperglycemia, electrolyte disturbance, anemia, hypoxia, cardiac sources, intracerebral event, toxicologic, neurologic, as well as other pathologies. PHYSICAL EXAM: Vital signs reviewed. General: Somewhat ill-appearing 61-year-old female, in no significant distress. HEENT: No scleral icterus, PERRLA, neck supple. Broken right lateral incisor. 2 cm chin laceration with let gel in place. Cardiovascular: Tachycardic but regular, no extra sounds Pulmonary: Clear to auscultation bilaterally, normal work of breathing. Abdomen: Soft, nontender, nondistended, positive bowel sounds. Musculoskeletal: Atraumatic, no peripheral edema. Neurologic: Patient awake alert and oriented x 3, speech is clear Skin: Warm, dry, no rash EMERGENCY DEPARTMENT COURSE/MDM: Patient was evaluated and appeared to be in no significant distress. IV access was obtained and laboratory work was drawn. Patient was placed on senior audit manager and noted to be in a sinus tachycardia. She was hydrated with normal saline solution. Patient has frequent PVCs. Laboratory work reveals a hypokalemia, hypomagnesemia and anemia. It does seem as though the patient is having syncopal events with change in position. Patient was given IV Tylenol, IV fentanyl and hydrated with normal saline solution. Head CT was performed and reveals no evidence of acute intracranial abnormality COVID or bony fractures. Facial bone CT is negative. Chest CT was performed given the patient's weight loss history recently and cancer history. This study does reveal a nodule/consolidation is favored to be scarring as opposed to mass. Let gel was applied to the laceration. The wound was very approximated by Shreya Ahn PA-C. Patient had notably low magnesium and potassium on laboratory work. These were repleted. Given the frequent PVCs, syncopal episode and depleted electrolytes, patient was discussed with the hospitalist service for further management. MONITORING: An order for cardiac monitoring was placed and the patient is noted to be in a sinus rhythm at 100 beats per minute. RADIOLOGY: see below EKG: Sinus tachycardia at 110 bpm with frequent PVCs. QTc is 460. Nonspecific ST and T wave abnormality. When compared to July 20, 2019, PVCs are new. 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, radiation Psoriatic arthritis hx of- on Cimzia in the past but d/'philip after adenocarcinoma of palate Raynaud's phenomenon without gangrene Sensorineural hearing loss (SNHL) of left ear with restricted hearing of right ear Tachycardia HAPPENED X1 PER PATIENT NONE SINCE Thyroid nodule Surgical History History of Achilles tendon repair x4--right foot--hardware in place History of Achilles tendon repair x1 on left History of carpal tunnel surgery of right wrist History of cholecystectomy History of colonoscopy with polypectomy History of dilatation and curettage History of esophageal dilatation History of esophagogastroduodenoscopy (EGD) History of hysterectomy History of lumpectomy of right breast 2003 (malignant)/2005 (benign) History of open reduction and internal fixation (ORIF) procedure right wrist--hardware removed History of phacoemulsification of cataract of both eyes with intraocular lens implantation History of right breast biopsy History of surgery excision of cancer of soft palate History of tonsillectomy S/P laminectomy (07/25/19) L5-S1 laminectomy on the right with medial fasciotomy by Dr. Richter for L disc herniation Status post biopsy of kidney Status post biopsy of thyroid gland benign nodule Family History Mother Family history of diabetes mellitus Myocardial infarction Sister Family history of diabetes mellitus Grandfather (Paternal) Family history of diabetes mellitus Grandmother (Paternal) Family history of diabetes mellitus Aunt Family history of diabetes mellitus Uncle Family hx of colon cancer Unknown Sinusitis Hypertension Cardiac disorder Cancer Colon cancer Lymphoma Myocardial infarction Father Lymphoma Other No family history of adverse response to anesthesia Denies family history of Ovarian cancer Prostate cancer Breast cancer Social History Smoking Status: Former smoker Second Hand Exposure: No (mom smoked); Hx Alcohol Use: Yes Alcohol type: beer Alcohol Intake Frequency: Monthly or Less Hx Substance Use: Yes Prescribed Medications: Marijuana Last Used Substance: Days (ago) Last Used Substance Other:: 2 Substance Use Type Other:: Medical Marijuana Preferred Language: Mexican Communication Ability: Effective Visual Impairment: No Limitations Hearing Ability: Normal 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 Beliefs That Will Affect Care: None marital status: Current Living Situation: Spouse current occupational status: disabled Feels Safe at Home: Yes Childhood Exposure to Second-Hand Smoke: Yes Dental Care, Regularly: Yes Physical Activity Frequency: Does not Exercise Seatbelt Use: always Sunscreen Use: Yes Assistive Devices: Walker and Wheelchair Allergies Allergies Allergy/AdvReac Type Severity Reaction Status Date / Time No Known Drug Allergies Allergy NKDA Verified 11/25/21 12:19 Home Meds Home Medications Medication Instructions Recorded Confirmed buspirone 5 mg tablet 5 mg PO BID 11/25/21 11/30/21 doxycycline hyclate 100 mg capsule 100 mg PO .ON HOLD Acne 11/25/21 11/30/21 halobetasol propionate 0.05 % 1 applic topical BID PRN FLARE UPS 11/25/21 11/30/21 topical ointment ipratropium bromide 21 mcg (0.03 2 spray intranasal DAILY PRN .. 11/25/21 11/30/21 %) nasal spray Previous Rx's Medication Instructions Recorded valacyclovir 1 gram tablet 1,000 mg PO DAILY PRN HSV #30 tabs 03/30/19 diclofenac sodium 1 % topical gel 2 g topical QID PRN Pain #100 grams 10/17/19 mupirocin calcium 2 % topical cream 1 applic topical BID PRN affected 05/20/20 areas between affected toes #30 grams silver sulfadiazine 1 % topical 1 applic topical BID PRN wound 09/22/20 cream (Silvadene) healing #400 grams trazodone 100 mg tablet 200 mg PO HS #180 tabs 04/13/21 promethazine 25 mg tablet 25 mg PO Q6H PRN Nausea #90 tabs 10/01/21 sucralfate 1 gram tablet (Carafate) 1 g PO AC #90 tabs 11/27/21 omeprazole 40 mg capsule,delayed 40 mg PO BID #42 caps 11/30/21 release venlafaxine 150 mg 150 mg PO QAM #90 caps 11/30/21 capsule,extended release 24 hr Results & Data (ED) Vital Signs Vital Signs - 24 hr 11/25/21 05:45 11/25/21 06:01 11/25/21 06:01 Temperature 36.3 C L Temperature Source Temporal Artery Scan Pulse Rate 136 H Pulse Rate from SpO2 Sensor Respiratory Rate 22 Respiratory Effort / Characteristics Non-Labored Respiratory Depth Normal Blood Pressure 91/71 L Blood Pressure Mean 77 Pulse Oximetry 100 96 Oxygen Delivery Method Room Air Room Air Sepsis Recent Fever Within 48 Hours No Sepsis New/Unexplained Change in Mental Status No Sepsis Action Taken by Nursing No Action Required 11/25/21 06:13 11/25/21 06:20 11/25/21 06:30 Temperature Temperature Source Pulse Rate 120 H 115 H 111 H Pulse Rate from SpO2 Sensor 119 H 110 H 111 H Respiratory Rate 20 35 H 20 Respiratory Effort / Characteristics Respiratory Depth Blood Pressure Blood Pressure Mean Pulse Oximetry 98 98 98 Oxygen Delivery Method Sepsis Recent Fever Within 48 Hours Sepsis New/Unexplained Change in Mental Status Sepsis Action Taken by Nursing 11/25/21 06:40 11/25/21 06:41 11/25/21 06:41 Temperature Temperature Source Pulse Rate 109 H 104 H Pulse Rate from SpO2 Sensor 111 H 100 H Respiratory Rate 27 H 22 Respiratory Effort / Characteristics Respiratory Depth Blood Pressure 109/69 Blood Pressure Mean 82 Pulse Oximetry 96 98 Oxygen Delivery Method Sepsis Recent Fever Within 48 Hours Sepsis New/Unexplained Change in Mental Status Sepsis Action Taken by Longterm Medications Current Medication List: was personally reviewed by me Laboratory Data Attestation: I reviewed the patient's lab results. Result diagrams: 11/27/21 06:28 11/27/21 06:28 Lab Results 11/25/21 11/25/21 11/25/21 Range/Units 06:15 06:15 06:15 WBC 5.80 (4.8-10.8) K/ul RBC 3.46 L (3.93-5.22) M/uL Hgb 10.5 L (12.0-16.0) g/dl Hct 31.9 L (34.1-44.9) % MCV 92.2 (80.0-100.0) fL MCH 30.3 (25.0-34.0) pg MCHC 32.9 (32.0-36.0) g/dL RDW Std Deviation 49.1 H (36.4-46.3) fL RDW Coeff of Ary 14.5 (11.5-14.5) % Plt Count 277 (130-400) K/uL MPV 10.7 (9.4-12.3) fL Immature Gran % (Auto) 0.5 % Neut % (Auto) 69.6 % Lymph % (Auto) 17.1 % Johnston % (Auto) 11.7 % Eos % (Auto) 0.9 % Baso % (Auto) 0.2 % Neut # (Auto) 4.04 (1.4-6.5) K/uL Lymph # (Auto) 0.99 L (1.2-3.4) K/uL Johnston # (Auto) 0.68 (0.24-0.82) K/uL Eos # (Auto) 0.05 (0-0.50) K/uL Baso # (Auto) 0.01 (0-0.2) K/uL Immature Gran # (Auto) 0.03 H (0.00-0.02) K/uL Sodium 134 L (136-145) mmol/L Potassium 3.3 L (3.5-5.1) mmol/L Chloride 106 (98-107) mmol/L Carbon Dioxide 16 L (21-32) mmol/L Anion Gap 12 H (3-11) BUN 18 (6-23) mg/dl Creatinine 1.90 H (0.6-1.2) mg/dl Est Cr Clr Drug Dosing Not Reportable Est GFR ( Amer) 32.0 ml/min Est GFR (Non-Af Amer) 27.6 ml/min BUN/Creatinine Ratio 9.5 L (10-20) Glucose 129 H (70-99(Fasting)) mg/dl Calcium 8.5 (8.5-10.1) mg/dl Phosphorus (2.5-4.9) mg/dl Magnesium (1.7-2.4) mg/dl Total Bilirubin 0.5 (0.2-1.0) mg/dl AST 23 (13-39) U/L ALT 16 (7-52) U/L Alkaline Phosphatase 156 H (34-104) U/L Troponin I High Sens 18.0 H (0-14) pg/ml Total Protein 6.3 (6.0-8.3) gm/dl Albumin 3.0 L (3.4-5.0) gm/dl Globulin 3.3 (2.5-4.0) gm/dl Albumin/Globulin Ratio 0.9 (0.9-2) SARS-CoV-2, RNA, NAAT NEGATIVE (NEGATIVE) 11/25/21 11/25/21 Range/Units 09:01 10:18 WBC (4.8-10.8) K/ul RBC (3.93-5.22) M/uL Hgb (12.0-16.0) g/dl Hct (34.1-44.9) % MCV (80.0-100.0) fL MCH (25.0-34.0) pg MCHC (32.0-36.0) g/dL RDW Std Deviation (36.4-46.3) fL RDW Coeff of Ary (11.5-14.5) % Plt Count (130-400) K/uL MPV (9.4-12.3) fL Immature Gran % (Auto) % Neut % (Auto) % Lymph % (Auto) % Johnston % (Auto) % Eos % (Auto) % Baso % (Auto) % Neut # (Auto) (1.4-6.5) K/uL Lymph # (Auto) (1.2-3.4) K/uL Johnston # (Auto) (0.24-0.82) K/uL Eos # (Auto) (0-0.50) K/uL Baso # (Auto) (0-0.2) K/uL Immature Gran # (Auto) (0.00-0.02) K/uL Sodium (136-145) mmol/L Potassium (3.5-5.1) mmol/L Chloride (98-107) mmol/L Carbon Dioxide (21-32) mmol/L Anion Gap (3-11) BUN (6-23) mg/dl Creatinine (0.6-1.2) mg/dl Est Cr Clr Drug Dosing Est GFR ( Amer) ml/min Est GFR (Non-Af Amer) ml/min BUN/Creatinine Ratio (10-20) Glucose (70-99(Fasting)) mg/dl Calcium (8.5-10.1) mg/dl Phosphorus 3.3 (2.5-4.9) mg/dl Magnesium 1.4 L (1.7-2.4) mg/dl Total Bilirubin (0.2-1.0) mg/dl AST (13-39) U/L ALT (7-52) U/L Alkaline Phosphatase (34-104) U/L Troponin I High Sens (0-14) pg/ml Total Protein (6.0-8.3) gm/dl Albumin (3.4-5.0) gm/dl Globulin (2.5-4.0) gm/dl Albumin/Globulin Ratio (0.9-2) SARS-CoV-2, RNA, NAAT NEGATIVE (NEGATIVE) Administered Medications Discontinued Medications Acetaminophen (Acetaminophen 325 Mg Tab) 650 mg PO Q4H PRN PRN Reason: Pain or Fever Stop: 12/25/21 15:42 Last Admin: 11/27/21 17:38 Dose: 650 mg Documented By: Admin: 11/27/21 12:05 Dose: 650 mg Documented By: Admin: 11/26/21 21:11 Dose: 650 mg Documented By: Admin: 11/26/21 17:09 Dose: 650 mg Documented By: Admin: 11/26/21 12:20 Dose: 650 mg Documented By: ASHOK Buspirone HCl (Buspirone 5 Mg Tab) 5 mg PO BID NORMA Stop: 12/25/21 20:59 Last Admin: 11/27/21 08:23 Dose: 5 mg Documented By: Admin: 11/26/21 21:13 Dose: 5 mg Documented By: Admin: 11/26/21 08:10 Dose: 5 mg Documented By: Admin: 11/25/21 20:53 Dose: 5 mg Documented By: DARIEN Diphtheria/Pertussis/Tetanus Vacc (Diphtheria/Tetanus/Pertussis 0.5 Ml Syr/Vial) 0.5 ml IM .ONCE ONE Stop: 11/25/21 06:02 Last Admin: 11/25/21 06:30 Dose: 0.5 ml Documented By: DERIAN Fenofibrate (Fenofibrate Nanocrystallized 145 Mg Tablet) 145 mg PO QAM [facility] Stop: 12/25/21 15:42 Last Admin: 11/27/21 08:23 Dose: 145 mg Documented By: Admin: 11/26/21 08:10 Dose: 145 mg Documented By: Admin: 11/25/21 20:53 Dose: 145 mg Documented By: DARIEN Fentanyl Citrate (Fentanyl Citrate 100 Mcg/2 Ml Vial) 50 mcg IV NOW STA Stop: 11/25/21 07:08 Last Admin: 11/25/21 07:18 Dose: 50 mcg Documented By: NETTIE Fentanyl Citrate (Fentanyl Citrate 100 Mcg/2 Ml Vial) 50 mcg IV Q1H PRN PRN Reason: Pain Stop: 12/09/21 10:46 Last Admin: 11/25/21 11:02 Dose: 50 mcg Documented By: NETTIE Fentanyl Citrate (Fentanyl Citrate 100 Mcg/2 Ml Vial) Confirm Administered Dose 100 mcg .ROUTE .STK-MED ONE Stop: 11/25/21 13:26 Last Admin: 11/25/21 13:27 Dose: Not Given Documented By: ANDI Sodium Chloride (Nss 1000ml) 1,000 mls @ 999 mls/hr IV .Q1H1M NORMA Stop: 11/25/21 07:15 Last Infusion: 11/25/21 07:38 Dose: 0 mls/hr Documented By: Admin: 11/25/21 06:32 Dose: 999 mls/hr Documented By: DERIAN Acetaminophen (Ofirmev) 1,000 mg in 100 mls @ 400 mls/hr IV NOW STA Stop: 11/25/21 07:21 Last Infusion: 11/25/21 07:35 Dose: 0 mls/hr Documented By: Admin: 11/25/21 07:17 Dose: 400 mls/hr Documented By: NETTIE Magnesium Sulfate/Dextrose (Magnesium Sulfate / D5w) 1 gm in 100 mls @ 200 mls/hr IV Q30M NORMA Stop: 11/25/21 11:09 Last Infusion: 11/25/21 13:37 Dose: 0 mls/hr Documented By: Admin: 11/25/21 10:59 Dose: 200 mls/hr Documented By: Infusion: 11/25/21 10:51 Dose: 200 mls/hr Documented By: Admin: 11/25/21 10:21 Dose: 200 mls/hr Documented By: NETTIE Potassium Chloride (K Brett / Wtr) 10 meq in 100 mls @ 100 mls/hr IV Q1H NORMA; Protocol Stop: 11/25/21 12:14 Last Infusion: 11/25/21 14:16 Dose: 0 mls/hr Documented By: Admin: 11/25/21 13:12 Dose: 100 mls/hr Documented By: Infusion: 11/25/21 13:12 Dose: 100 mls/hr Documented By: Admin: 11/25/21 12:26 Dose: 100 mls/hr Documented By: NETTIE Sodium Chloride (Nss 1000ml) 1,000 mls @ 125 mls/hr IV .Q8H STA Stop: 11/25/21 18:14 Last Infusion: 11/25/21 18:21 Dose: 125 mls/hr Documented By: Admin: 11/25/21 10:21 Dose: 125 mls/hr Documented By: NETTIE Pantoprazole Sodium 40 mg/ (Syringe) 10 mls @ 5 mls/min IV BID NORMA Stop: 12/26/21 20:59 Last Admin: 11/27/21 08:23 Dose: 5 mls/min Documented By: Admin: 11/26/21 21:14 Dose: 5 mls/min Documented By: ASHOK Ioversol (Optiray 320 125ml) 120 ml IV ONCE ONE Stop: 11/25/21 08:15 Last Admin: 11/25/21 08:14 Dose: 120 ml Documented By: SHY Ipratropium [place] (Ipratropium [place] Nasal [place] 0.06% 15ml) 1 sprays CHAD DAILY NORMA Stop: 12/26/21 08:59 Last Admin: 11/27/21 09:13 Dose: Not Given Documented By: Admin: 11/26/21 08:10 Dose: 1 sprays Documented By: KWADWO Lidocaine (Lidocaine/Epineph/Tetracaine 1 Ea Syr) 1 each EXT NOW STA Stop: 11/25/21 06:02 Last Admin: 11/25/21 06:30 Dose: 1 each Documented By: DERIAN Metoclopramide HCl (Metoclopramide Hcl 10 Mg Tablet) 10 mg PO BID NORMA Stop: 12/25/21 16:29 Last Admin: 11/27/21 08:24 Dose: 10 mg Documented By: Admin: 11/26/21 21:13 Dose: 10 mg Documented By: Admin: 11/26/21 08:09 Dose: 10 mg Documented By: Admin: 11/26/21 00:06 Dose: Not Given Documented By: Admin: 11/25/21 20:06 Dose: 10 mg Documented By: DARIEN Miscellaneous (*Halobetasol Propionate 0.05 % Ointment*Order Awaiting Action) 1 each N/A QS NORMA Stop: 12/26/21 00:00 Last Admin: 11/27/21 09:12 Dose: Not Given Documented By: Admin: 11/27/21 06:23 Dose: Not Given Documented By: Admin: 11/26/21 19:27 Dose: Not Given Documented By: Admin: 11/26/21 14:05 Dose: Not Given Documented By: Admin: 11/26/21 02:40 Dose: Not Given Documented By: DARIEN Morphine Sulfate (Morphine Sulfate 2 Mg/Ml Carp) 2 mg IV Q15M PRN PRN Reason: Pain Stop: 12/09/21 06:00 Last Admin: 11/25/21 06:30 Dose: 2 mg Documented By: DERIAN Oxycodone HCl (Oxycodone Hcl Ir 5 Mg Tab (Immediate Release)) 5 mg PO Q4H PRN PRN Reason: Severe Pain Stop: 12/09/21 13:32 Last Admin: 11/27/21 17:38 Dose: 5 mg Documented By: Admin: 11/27/21 12:05 Dose: 5 mg Documented By: Admin: 11/26/21 21:13 Dose: 5 mg Documented By: Admin: 11/26/21 17:09 Dose: 5 mg Documented By: Admin: 11/26/21 12:20 Dose: 5 mg Documented By: Admin: 11/25/21 17:53 Dose: 5 mg Documented By: Admin: 11/25/21 13:40 Dose: 5 mg Documented By: ANDI Pantoprazole Sodium (Pantoprazole 40 Mg Tab) 40 mg PO QAM [facility] Stop: 12/26/21 08:59 Last Admin: 11/26/21 08:09 Dose: 40 mg Documented By: KWADWO Sucralfate (Sucralfate 1 Gm/10 Ml Udc) 1 gm PO QID [facility] Stop: 12/27/21 12:59 Last Admin: 11/27/21 18:23 Dose: 1 gm Documented By: Admin: 11/27/21 14:25 Dose: 1 gm Documented By: LOCO Trazodone HCl (Trazodone Hcl 100 Mg Tab) 200 mg PO HS [facility] Stop: 12/25/21 20:59 Last Admin: 11/26/21 21:13 Dose: 200 mg Documented By: Admin: 11/25/21 20:54 Dose: 200 mg Documented By: DARIEN Venlafaxine HCl (Venlafaxine Hcl Xr 150 Mg Cap[facility]r) [facility] [place] Stop: 12/25/21 15:42 Last Admin: 11/27/21 08:24 Dose: 150 mg Documented By: Admin: 11/26/21 08:09 Dose: 150 mg Documented By: Admin: 11/25/21 20:52 Dose: 150 mg Documented By: DARIEN Imaging Data Radiologist's Impression: Chest CTA 11/25/21 06:40 CT ANGIOGRAPHY OF THE CHEST, PULMONARY EMBOLUS PROTOCOL CLINICAL HISTORY: [place]. COMPARISON STUDY: Chest CT November 23, 2021. PET/CT December 26, 2017. TECHNIQUE: Following IV administration of 120 mL of Optiray, helical axial images of the chest were obtained utilizing the pulmonary embolus protocol. Max imal intensity projections and sagittal and coronal reformats were viewed on an independent 3D workstation. IV contrast was administered without complication. Automated exposure control was utilized for the study. A dose lowering technique was utilized adhering to the principles of ALARA. FINDINGS: No pulmonary emboli are identified. There is no thoracic aortic dissection. There is a trace pericardial effusion. No enlarged thoracic lymph nodes are present. Central airways are patent. Note is made of a 2.2 x 1.1 cm irregular subpleural opacity within the right lower lobe on axial image 94 of 278. This is new since PET/CT of December 26, 2017. No pneumothorax or pleural effusion is present. No acute fracture is identified within visualized portions of the bony thorax. There are several old bilateral rib fractures. Diffuse sclerosis of visualized skeletal structures is similar to PET/CT of December 26, 2017. IMPRESSION: 1. No pulmonary emboli identified. 2. No acute traumatic findings within the chest. 3. 2.2 x 1.1 cm irregular subpleural opacity within the right lower lobe. This is new since PET/CT of December 26, 2017. Scarring is favored. A neoplastic etiology is within the differential although considered less likely. Short-term follow-up chest CT in 3 months is recommended for reassessment. 4. Sclerosis of visualized skeletal structures. Given stability since PET/CT of December 26, 2017, a metabolic etiology is favored. Neoplastic process is considered less likely. ACT 112: Negative or not required by law. Electronically signed by: Olman Osei M.D. 11/25/2021 9:[address] 11/25/21 06:49 CT facial bones wo con CLINICAL HISTORY: Trauma TECHNIQUE: Multidetector row helical CT of the maxillofacial bones was performed without administration of intravenous contrast, and processed with bone and soft tissue algorithms. Coronal and sagittal reformations were obtained. Automated dose lowering techniques and/or adjustment according to patient size were utilized for this exam. Comparison: None available at the time of this dictation. FINDINGS: Nasal bones are normal. The mandible is intact. The temporomandibular joints are anatomically aligned. There is suggestion of defects in a few teeth, particularly incisors. Zygomatic arches are intact. The globes are normal and symmetric, without proptosis, obvious disruption or lens dislocation. There is no orbital radiopaque foreign body. The orbital dudley are intact. The retrobulbar fat is without evidence of disruption. Extraocular muscles are normal and symmetric. Optic nerve sheath complexes are normal in course and caliber. Imaged portions of the paranasal sinuses and mastoid air cells are clear. IMPRESSION: No acute fracture of the facial bones. There is suggestion of defect of the incisors compatible with clinical history of chipped tooth. The temporal mandibular joints are normally aligned. ACT 112: Negative or not required by law. Electronically signed by: Adonay Stahl M.D. 11/25/2021 8:[address] 11/25/21 06:49 CT head/brain wo con CLINICAL HISTORY: Trauma Technique: Contiguous axial CT images of the head were acquired from the base of the skull to the vertex without intravenous contrast administration. Images were viewed in brain, subdural and bone windows. Automated dose lowering techniques and/or adjustment according to patient size were utilized for this exam. Comparison: None available at the time of this dictation. Findings: The ventricles, basal cisterns, and cerebral sulci are normal. There is no acute intracranial hemorrhage or evidence of acute territorial infarction. Neither mass effect, shift of the midline structures, nor abnormal extra-axial fluid collections are shown. Imaged portions of the paranasal sinuses and mastoid air cells are clear. The orbits appear normal. There are no acute fractures of the calvaria or scalp swelling. Impression: No acute intracranial hemorrhage, no evidence of acute territorial infarction or other acute intracranial disease process. ACT 112: Negative or not required by law. Electronically signed by: Adonay Stahl M.D. 11/25/2021 8:[address] 11/25/21 06:51 CT OF THE CERVICAL SPINE WITHOUT CONTRAST CLINICAL HISTORY: Trauma. COMPARISON STUDY: MRI of the cervical spine October 10, 2017. TECHNIQUE: Helical axial images of the cervical spine were obtained without IV contrast. Sagittal and coronal reconstructions were viewed. Automated exposure control was utilized for the study. A dose lowering technique was utilized adhering to the principles of ALARA. FINDINGS: There is mild reversal of the normal cervical lordosis. Vertebral body heights are maintained. No acute cervical spine fracture or subluxation is present. There is no prevertebral edema. Facet joints are intact. Moderate multilevel degenerative changes are present. Diffuse sclerosis of the visualized skeletal structures is noted. IMPRESSION: 1. No acute cervical spine fracture or subluxation. 2. Diffuse sclerosis of visualized skeletal structures. Although nonspecific, this is similar to prior imaging studies and therefore is likely metabolic. A neoplastic etiology is within the differential but considered less likely. ACT 112: Negative or not required by law. Electronically signed by: Olman Osei M.D. 11/25/2021 8:44 AM Blood Pressure Blood Pressure Findings: Normal blood pressure Blood Pressure Disposition: did not require urgent referral Head Trauma GCS Score: 15 Discharge Plan Visit Data Chief Complaint: Fall Stated Complaint: FALL- HIT FACE,SPLIT LIP,CRACKED TOOTH ED Provider: Monae Monteiro Discharge Problem: Syncope and collapse, Chin laceration, Hypokalemia, Hypomagnesemia Patient Disposition: Admitted As Inpatient Condition: Fair Discharge Instructions Interventions: ED Discharge Assessment Last Done: 11/25/21 16:39
[2021-11-25 09:47] LABS: Magnesium 1.4 mg/dl (1.7-2.4); Phosphorus 3.3 mg/dl (2.5-4.9)
[2021-11-25] MEDS ORDERED: SODIUM CHLORIDE 0.9% 1000ML 1,000 ML IV STA (10:15)
[2021-11-25] MEDS: MAGNESIUM SULFATE / D5W 1 GM/100 ML BAG IV SCH ×2 (10:21→10:59)
--- NOTE | 2021-11-25 10:40 | Emergency Department Note ---
ED Visit Note I was asked by Dr. Monteiro to perform laceration repair on the patient's inferior chin. Please see her note regarding complete management, care, and final disposition of this patient. The patient sustained a 2 cm laceration on the inferior chin. This was repaired with the assistance of the Physician Composite Worker student. LET gel was applied and allowed to set for greater than 1 hour. PROCEDURE NOTE: Verbal consent was obtained to perform the procedure. Using sterile technique the wound was cleaned with Betadine. The area was sterilely draped. Once the patient was anesthetized, the wound was copiously irrigated under pressure with sterile saline. The wound was explored and there were no deep structures injured such as tendons, bone, or significant blood vessels. The laceration was repaired using 5 simple interrupted 5-0 nylon sutures with the wound edges being well approximated. The patient tolerated the procedure well. Hemostasis was achieved. The area was cleaned with sterile saline and dressed with bacitracin ointment.
[2021-11-25] MEDS ORDERED: fentaNYL citrate 100 MCG/2 ML VIAL IV PRN (10:47)
--- NOTE | 2021-11-25 11:13 | History & Physical Report ---
Date of Service November 25, 2021 Assessment & Plan (1) Syncope: Plan: -Admit to observation -Syncope is likely due to orthostatic hypotension from poor oral intake, recent diarrhea, and still taking antihypertensives -No other signs of seizure or cardiac symptoms -Monitor on tele and will obtain transthoracic echo to monitor for structural abnormalities -Will obtain orthostatic vitals and consult PT/OT -Tylenol and tramadol for pain from recent facial trauma (2) Weight loss: Plan: -Patient has recent history of poor oral intake which sounds like it is due to issues with taste from previous chemo/radiation -Has been followed by GI for these issues outpatient, could consider consulting if no improvements by tomorrow -Consulted dietitian to assist with nutrition (3) Nausea & vomiting: Plan: -Continue [employer] nausea meds (4) Hypokalemia: Plan: -Found to be 3.3 in ED, being repleted by ED staff -Likely due to hypo mag and recent nausea and diarrhea -Monitor AM BMP and mag (5) Hypomagnesemia: Plan: -Found to be 1.4 in ED -Being repleted by ED staff -Monitor AM BMP and mag (6) Depression: Plan: -[employer] buspar and venlafaxine (7) GERD without esophagitis: Plan: -[employer] omeprazole (8) Hyperlipidemia: Plan: -[employer] statin (9) Hypertension: Plan: -Hold [employer] antihypertensives for now and consider adnjust before dischagre Plan The patient was discussed with Dr. Interiano at the time of admission History of Present Illness Chief Complaint: Syncope Primary Care Provider: Danilo Freeman DO Dedra is a 61 year old female with a PMH significant for previous palate and breast cancer S/P chemo and radiation in 2018, gastroparesis, persistent nausea/vomiting, GERD, weight loss, depression, anxiety, IGA nephropathy with stage 4 CKD, who presented to the [facility] on 11/25/21 with a chief complaint of syncope. Per the patient and her , the patinet has been experiencing multiple falls at night while getting up to go to the bathroom. For the past 2-3 months she has had a change in her taste which has significantly decreased her appetite and causes her to vomit the majority of time when she eats. She has tried multiple different foods and boost shakes, of which, she still experiences nausea and vomiting. Over the last 2-3 months she has experienced an approximately 40 pound weight loss. She has been experiencing constipation for which she has been taking Linzess. For the past week she has been experiencing diarrhea so she stopped taking it approximately 2-3 days ago. When asked, she experiencing lightheadedness/dizziness if she changes position too quickly, stands too quickly, or doesn't take her time walking to the bathroom. She normally uses a walker her got her to ambulate to the bathroom but didn't use it last night. When she lost consciousness she hit her face on her bathroom tile. She denies experiencing chest pain, SOB, or palpitations prior to or after her syncopal episodes. Her found her on the bathroom floor and denies seizure like activity, she denies any post-ictal states after her episodes. She was last seen in the [facility] on 11/16/21; per their note they recommended CT of the chest/abd/pelvis, baseline labs, and a referral to the GI motility clinic in [facility]. In the ED, the patient was found to be afebrile, hemodynamically stable, and stable on room air. She was found to be hypokalemic at 3.3 and to have hypomagnesemia at 1.4. CT cervical spine, face, and head were negative for acute trauma. CTA of the chest was negative for PE and acute trauma, follow-up CT was recommended in 3-months for a subpleural opacity in the right lower lobe. The patient was given 1L NSS bolus, pain control, and magnesium + potassium supplementation. Allergies Allergy/AdvReac Type Severity Reaction Status Date / Time No Known Drug Allergies Allergy NKDA Verified 11/25/21 12:19 Home Medications Medication Instructions Recorded Confirmed Type valacyclovir 1 gram tablet 1,000 mg PO DAILY PRN HSV #30 tabs 03/30/19 11/25/21 Rx diclofenac sodium 1 % topical gel 2 g topical QID PRN Pain #100 grams 10/17/19 11/25/21 Rx mupirocin calcium 2 % topical cream 1 applic topical BID PRN affected 05/20/20 11/25/21 Rx areas between affected toes #30 grams fenofibrate nanocrystallized 145 145 mg PO QAM #90 tabs 07/18/20 11/25/21 Rx mg tablet silver sulfadiazine 1 % topical 1 applic topical BID PRN wound 09/22/20 11/25/21 Rx cream (Silvadene) healing #400 grams omeprazole 40 mg capsule,delayed 40 mg PO QAM #90 caps 01/16/21 11/25/21 Rx release lisinopril 10 mg tablet 5 mg PO QAM #90 tabs 03/26/21 11/25/21 Rx trazodone 100 mg tablet 200 mg PO HS #180 tabs 04/13/21 11/25/21 Rx verapamil 40 mg tablet 20 mg PO QAM #90 tabs 05/11/21 11/25/21 Rx venlafaxine 150 mg 150 mg PO QAM #90 caps 06/01/21 11/25/21 Rx capsule,extended release 24 hr promethazine 25 mg tablet 25 mg PO Q6H PRN Nausea #90 tabs 10/01/21 11/25/21 Rx linaclotide 145 mcg capsule 290 mcg PO DAILY PRN Abdominal 10/16/21 11/25/21 Rx (Linzess) Discomfort #90 caps metoclopramide HCl 10 mg tablet 10 mg PO BID nausea and vomiting 10/16/21 11/25/21 History (Reglan) buspirone 5 mg tablet 5 mg PO BID 11/25/21 11/25/21 History doxycycline hyclate 100 mg capsule 100 mg PO .ON HOLD Acne 11/25/21 11/25/21 History halobetasol propionate 0.05 % 1 applic topical BID PRN FLARE UPS 11/25/21 11/25/21 History topical ointment ipratropium bromide 21 mcg (0.03 2 spray intranasal DAILY PRN .. 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, radiation Psoriatic arthritis hx of- on Cimzia in the past but d/'philip after adenocarcinoma of palate Raynaud's phenomenon without gangrene Sensorineural hearing loss (SNHL) of left ear with restricted hearing of right ear Tachycardia HAPPENED X1 PER PATIENT NONE SINCE Thyroid nodule Surgical History History of Achilles tendon repair x4--right foot--hardware in place History of Achilles tendon repair x1 on left History of carpal tunnel surgery of right wrist History of cholecystectomy History of colonoscopy with polypectomy History of dilatation and curettage History of esophageal dilatation History of esophagogastroduodenoscopy (EGD) History of hysterectomy History of lumpectomy of right breast 2003 (malignant)/2005 (benign) History of open reduction and internal fixation (ORIF) procedure right wrist--hardware removed History of phacoemulsification of cataract of both eyes with intraocular lens implantation History of right breast biopsy History of surgery excision of cancer of soft palate History of tonsillectomy S/P laminectomy (07/25/19) L5-S1 laminectomy on the right with medial fasciotomy by Dr. Richter for L disc herniation Status post biopsy of kidney Status post biopsy of thyroid gland benign nodule Family History Mother Family history of diabetes mellitus Myocardial infarction Sister Family history of diabetes mellitus Grandfather (Paternal) Family history of diabetes mellitus Grandmother (Paternal) Family history of diabetes mellitus Aunt Family history of diabetes mellitus Uncle Family hx of colon cancer Unknown Sinusitis Hypertension Cardiac disorder Cancer Colon cancer Lymphoma Myocardial infarction Father Lymphoma Other No family history of adverse response to anesthesia Denies family history of Ovarian cancer Prostate cancer Breast cancer Social History Smoking Status: Former smoker Second Hand Exposure: No (mom smoked); Hx Alcohol Use: Yes Alcohol type: beer Alcohol Intake Frequency: Monthly or Less Hx Substance Use: Yes (medical marijuana drops) Prescribed Medications: Marijuana Last Used Substance: Days (ago) Last Used Substance Other:: used approx a week ago Substance Use Type Other:: medical marijuana Preferred Language: Kyrgyz Communication Ability: Effective Visual Impairment: No Limitations Hearing Ability: Normal Supervisor Scrap Preparation Required: No Beliefs That Will Affect Care: None marital status: Current Living Situation: Spouse current occupational status: disabled Feels Safe at Home: Yes Childhood Exposure to Second-Hand Smoke: Yes Dental Care, Regularly: Yes Physical Activity Frequency: Does not Exercise Seatbelt Use: always Sunscreen Use: Yes Assistive Devices: Glasses, Walker and Wheelchair Review of Systems Constitutional: + weakness and + weight loss; no fever and no chills Eyes: no diplopia and no problem reported Ear, Nose, Mouth, Throat: as per Subjective / HPI Respiratory: as per Subjective / HPI Cardiovascular: + syncope; no chest pain and no palpitations Gastrointestinal: + nausea, + vomiting and + diarrhea/loose stools; no abdominal pain, no early satiety, no hematemesis, no constipation and no blood in stools Genitourinary: no dysuria Musculoskeletal: no back pain, no neck pain and no deformity Integumentary: no rash Neurologic: + falls; no numbness, no tremor(s), no seizure-like activity, no headache(s) and no confusion Psychiatric: no behavioral changes and no confusion Endocrine: + fatigue Hematologic / Lymphatic: as per Subjective / HPI Allergy / Immunological: as per Subjective / HPI Physical Exam Constitutional: WD/WN, vitals as above Eyes: PERRL, conjunctivae normal, anicteric sclerae ENMT: Patient with new laceration under the chin which is sutured and without signs of drainage. Patient with chipped right incisor tooth, no other lesions or trauma noted Neck: trachea midline, no thyromegaly Respiratory: normal respiratory effort, lungs clear to auscultation Cardiovascular: RRR, no murmur, no edema Gastrointestinal (Abdomen): normal bowel sounds, soft, nontender, no hepatosplenomegaly Musculoskeletal: no cyanosis or clubbing, extremities motor strength 5/5 Skin: -See above Neurologic: PERRL, EOMI, accommodation nl, no face palsy, no dysarthria Psychiatric: A+Ox3, euthymic affect Results & Data Results & Data ([facility]) Vital Signs (Past 12 Hours) Vital Signs Temp Pulse Resp BP Pulse Ox O2 Del Method 11/25/21 06:41 104 H 22 98 11/25/21 06:41 109/69 11/25/21 06:40 109 H 27 H 96 11/25/21 06:30 111 H 20 98 11/25/21 06:20 115 H 35 H 98 11/25/21 06:13 120 H 20 98 11/25/21 06:01 96 Room Air 11/25/21 05:45 36.3 C L 136 H 22 91/71 L 100 Room Air Laboratory Results Abnormal lab results 11/25/21 11/25/21 11/25/21 Range/Units 06:15 06:15 09:01 RBC 3.46 L (3.93-5.22) M/uL Hgb 10.5 L (12.0-16.0) g/dl Hct 31.9 L (34.1-44.9) % RDW Std Deviation 49.1 H (36.4-46.3) fL Lymph # (Auto) 0.99 L (1.2-3.4) K/uL Immature Gran # (Auto) 0.03 H (0.00-0.02) K/uL Sodium 134 L (136-145) mmol/L Potassium 3.3 L (3.5-5.1) mmol/L Carbon Dioxide 16 L (21-32) mmol/L Anion Gap 12 H (3-11) Creatinine 1.90 H (0.6-1.2) mg/dl BUN/Creatinine Ratio 9.5 L (10-20) Glucose 129 H (70-99(Fasting)) mg/dl Magnesium 1.4 L (1.7-2.4) mg/dl Alkaline Phosphatase 156 H (34-104) U/L Troponin I High Sens 18.0 H (0-14) pg/ml Albumin 3.0 L (3.4-5.0) gm/dl Diagnostic Findings Chest CTA 11/25/21 06:40 CT ANGIOGRAPHY OF THE CHEST, PULMONARY EMBOLUS PROTOCOL CLINICAL HISTORY: [place]. COMPARISON STUDY: Chest CT November 23, 2021. PET/CT December 26, 2017. TECHNIQUE: Following IV administration of 120 mL of Optiray, helical axial images of the chest were obtained utilizing the pulmonary embolus protocol. Maximal intensity projections and sagittal and coronal reformats were viewed on an independent 3D workstation. IV contrast was administered without complication. Automated exposure control was utilized for the study. A dose lowering technique was utilized adhering to the principles of ALARA. FINDINGS: No pulmonary emboli are identified. There is no thoracic aortic dissection. There is a trace pericardial effusion. No enlarged thoracic lymph nodes are present. Central airways are patent. Note is made of a 2.2 x 1.1 cm irregular subpleural opacity within the right lower lobe on axial image 94 of 278. This is new since PET/CT of December 26, 2017. No pneumothorax or pleural effusion is present. No acute fracture is identified within visualized portions of the bony thorax. There are several old bilateral rib fractures. Diffuse sclerosis of visualized skeletal structures is similar to PET/CT of December 26, 2017. IMPRESSION: 1. No pulmonary emboli identified. 2. No acute traumatic findings within the chest. 3. 2.2 x 1.1 cm irregular subpleural opacity within the right lower lobe. This is new since PET/CT of December 26, 2017. Scarring is favored. A neoplastic etiology is within the differential although considered less likely. Short-term follow-up chest CT in 3 months is recommended for reassessment. 4. Sclerosis of visualized skeletal structures. Given stability since PET/CT of December 26, 2017, a metabolic etiology is favored. Neoplastic process is considered less likely. ACT 112: Negative or not required by law. Electronically signed by: Olman Osei M.D. 11/25/2021 9:[address] 11/25/21 06:49 CT facial bones wo con CLINICAL HISTORY: Trauma TECHNIQUE: Multidetector row helical CT of the maxillofacial bones was performed without administration of intravenous contrast, and processed with bone and soft tissue algorithms. Coronal and sagittal reformations were obtained. Automated dose lowering techniques and/or adjustment according to patient size were utilized for this exam. Comparison: None available at the time of this dictation. FINDINGS: Nasal bones are normal. The mandible is intact. The temporomandibular joints are anatomically aligned. There is suggestion of defects in a few teeth, particularly incisors. Zygomatic arches are intact. The globes are normal and symmetric, without proptosis, obvious disruption or lens dislocation. There is no orbital radiopaque foreign body. The orbital dudley are intact. The retrobulbar fat is without evidence of disruption. Extraocular muscles are normal and symmetric. Optic nerve sheath complexes are normal in course and caliber. Imaged portions of the paranasal sinuses and mastoid air cells are clear. IMPRESSION: No acute fracture of the facial bones. There is suggestion of defect of the incisors compatible with clinical history of chipped tooth. The temporal mandibular joints are normally aligned. ACT 112: Negative or not required by law. Electronically signed by: Adonay Stahl M.D. 11/25/2021 8:[address] 11/25/21 06:49 CT head/brain wo con CLINICAL HISTORY: Trauma Technique: Contiguous axial CT images of the head were acquired from the base of the skull to the vertex without intravenous contrast administration. Images were viewed in brain, subdural and bone windows. Automated dose lowering techniques and/or adjustment according to patient size were utilized for this exam. Comparison: None available at the time of this dictation. Findings: The ventricles, basal cisterns, and cerebral sulci are normal. There is no acute intracranial hemorrhage or evidence of acute territorial infarction. Neither mass effect, shift of the midline structures, nor abnormal extra-axial fluid collections are shown. Imaged portions of the paranasal sinuses and mastoid air cells are clear. The orbits appear normal. There are no acute fractures of the calvaria or scalp swelling. Impression: No acute intracranial hemorrhage, no evidence of acute territorial infarction or other acute intracranial disease process. ACT 112: Negative or not required by law. Electronically signed by: Adonay Stahl M.D. 11/25/2021 8:[address] 11/25/21 06:51 CT OF THE CERVICAL SPINE WITHOUT CONTRAST CLINICAL HISTORY: Trauma. COMPARISON STUDY: MRI of the cervical spine October 10, 2017. TECHNIQUE: Helical axial images of the cervical spine were obtained without IV contrast. Sagittal and coronal reconstructions were viewed. Automated exposure control was utilized for the study. A dose lowering technique was utilized adhering to the principles of ALARA. FINDINGS: There is mild reversal of the normal cervical lordosis. Vertebral body heights are maintained. No acute cervical spine fracture or subluxation is present. There is no prevertebral edema. Facet joints are intact. Moderate multilevel degenerative changes are present. Diffuse sclerosis of the visualized skeletal structures is noted. IMPRESSION: 1. No acute cervical spine fracture or subluxation. 2. Diffuse sclerosis of visualized skeletal structures. Although nonspecific, this is similar to prior imaging studies and therefore is likely metabolic. A neoplastic etiology is within the differential but considered less likely. ACT 112: Negative or not required by law. Electronically signed by: Olman Osei M.D. 11/25/2021 8:44 AM Medications Administered Fentanyl Citrate (Fentanyl Citrate 100 Mcg/2 Ml Vial) 50 mcg IV Q1H PRN PRN Reason: Pain Stop: 12/09/21 10:46 Last Admin: 11/25/21 11:02 Dose: 50 mcg Documented By: NETTIE Sodium Chloride (Nss 1000ml) 1,000 mls @ 125 mls/hr IV .Q8H STA Stop: 11/25/21 18:14 Last Admin: 11/25/21 10:21 Dose: 125 mls/hr Documented By: NETTIE ECG Additional Comments: Sinus tachycardia with frequent Premature ventricular complexes Nonspecific ST and T wave abnormality Abnormal ECG When compared with ECG of 20-JUL-2019 12:18, Premature ventricular complexes are now Present Vent. rate has increased BY 44 BPM QT has lengthened Code Status & VTE Plan Code Status Full code VTE Prophylaxis Plan VTE Prophylaxis will be ordered: Yes Supervising Physician Co-Signing Physician Notes Discussed with TAHIR, reviewed documentation and agree with his note above. Patient is here for syncopal episode, says that this has been an ongoing issue, especially at night. Patient is admitted to ambulatory dysfunction. Suffered some superficial facial trauma for fall yesterday evening. Plan to work-up for possible cardiac causes, check 2D echo. Keep patient on monitor. Orthostatics. PT/OT evaluation. Has had some weight loss issues and this may be secondary to ageusia from chemotherapy. GI consultation. PG Care Time/CCT Total # of Minutes Spent Total Time Spent with Patient: Total time spent is greater than 50% in coordination of care (as documented) at patient's floor/unit and/or counseling patient: Coding Level of Care Code INT OBSERVATION CARE 50M LVL 2 Medical Decision Making Moderate Complexity Diagnoses Syncope R55 Weight loss R63.4 Nausea & vomiting R11.2 Hypokalemia E87.6 Hypomagnesemia E83.42 Depression F32.9 GERD without esophagitis K21.9 Hyperlipidemia E78.5 Hypertension I10
[2021-11-25] MEDS ORDERED: traMADol HCL 50 MG TABLET PO PRN (11:38)
[2021-11-25] MEDS: POTASSIUM CHLORIDE / WTR 10 MEQ/100 ML PLCT IV SCH ×2 (12:26→13:12)
[2021-11-25] MEDS ORDERED: fentaNYL citrate 100 MCG/2 ML VIAL ONE (13:25)
[2021-11-25] MEDS: oxyCODONE HCL IR 5 MG TAB (IMMEDIATE RELEASE) PO PRN ×2 (13:40→17:53)
[2021-11-25] MEDS ORDERED: GABAPENTIN 300 MG CAP PO SCH ×2 (15:43→21:00)
[2021-11-25 17:10] VITALS: TEMP 97.9
[2021-11-25] MEDS: METOCLOPRAMIDE HCL 10 MG TABLET PO SCH (20:06)
[2021-11-25] MEDS: VENLAFAXINE HCL XR 150 MG CAPXR PO SCH (20:52)
[2021-11-25] MEDS: busPIRone 5 MG TAB PO SCH (20:53)
[2021-11-25] MEDS: FENOFIBRATE NANOCRYSTALLIZED 145 MG TABLET PO SCH (20:53)
[2021-11-25] MEDS: traZODone HCL 100 MG TAB PO SCH (20:54)
[2021-11-25] MEDS ORDERED: busPIRone 5 MG TAB PO SCH (21:00)
[2021-11-26] MEDS: METOCLOPRAMIDE HCL 10 MG TABLET PO SCH ×3 (00:06→21:13)
--- NOTE | 2021-11-26 06:14 | XCELERA ---
[id number] \\[id number]
[2021-11-26] MEDS: VENLAFAXINE HCL XR 150 MG CAPXR PO SCH (08:09)
[2021-11-26] MEDS: IPRATROPIUM BROMIDE NASAL SPRAY 0.06% 15ML NAE SCH (08:10)
[2021-11-26] MEDS: busPIRone 5 MG TAB PO SCH ×2 (08:10→21:13)
[2021-11-26] MEDS: FENOFIBRATE NANOCRYSTALLIZED 145 MG TABLET PO SCH (08:10)
[2021-11-26 08:31] LABS: Basophils # (auto) 0.02 K/uL (0-0.2); Basophils % (auto) 0.5 %; Eosinophils # (auto) 0.15 K/uL (0-0.50); Eosinophils % (auto) 3.9 %; Hematocrit (blood only) 25.2 % (34.1-44.9); Hemoglobin 8.1 g/dl (12.0-16.0); Immature Granulocytes # (auto) 0.01 K/uL (0.00-0.02); Immature Granulocytes % (auto) 0.3 %; Lymphocytes # (auto) 0.98 K/uL (1.2-3.4); Lymphocytes % (auto) 25.2 %; Mean Corpuscular Hemoglobin 30.8 pg (25.0-34.0); Mean Corpuscular Hgb Conc 32.1 g/dL (32.0-36.0); Mean Corpuscular Volume 95.8 fL (80.0-100.0); Mean Platelet Volume 11.1 fL (9.4-12.3); Monocytes # (auto) 0.59 K/uL (0.24-0.82); Monocytes % (auto) 15.2 %; Neutrophils # (auto) 2.14 K/uL (1.4-6.5); Neutrophils % (auto) 54.9 %; Platelet Count 215 K/uL (130-400); RDW Coefficient of Variation 15.1 % (11.5-14.5); Red Blood Count 2.63 M/uL (3.93-5.22); White Blood Count 3.89 K/ul (4.8-10.8)
[2021-11-26 08:57] LABS: BUN Creatinine Ratio 8.6 (10-20); Calcium 8.2 mg/dl (8.5-10.1); Creatinine Clr Calc Pharmacy 34.2 ml/min; Est GFR (African American) 35.5 ml/min; Est GFR (Non-African American) 30.7 ml/min; Potassium 4.5 mmol/L (3.5-5.1)
[2021-11-26] MEDS ORDERED: PANTOprazole 40 MG TAB PO SCH (09:00)
[2021-11-26] MEDS: oxyCODONE HCL IR 5 MG TAB (IMMEDIATE RELEASE) PO PRN ×3 (12:20→21:13)
[2021-11-26] MEDS: ACETAMINOPHEN 325 MG TAB PO PRN ×3 (12:20→21:11)
--- NOTE | 2021-11-26 17:03 | Hospitalist Progress Note ---
Date of Service November 26, 2021 Assessment & Plan (1) Syncope: Plan: -Placed in observation -Syncope possibly d/t orthostatic hypotension from poor oral intake, recent diarrhea, and still taking antihypertensives -No other signs of seizure or cardiac symptoms -Echo performed, moderate pericardial effusion -Orthostatics first set positive and repeat negative -Tylenol and OxyIR for pain from recent facial trauma -Hgb dropped from 10.5 to 8.1 overnight - concern for GI blood loss of which could be causing orthostasis * rectal exam performed at bedside trace heme positive, repeat H&H @ 1700, transfuse if <8 * GI consult ordered, d/w Dr. Ruslan Dr. Case will see tomorrow, NPO after MN in event of EGD * Change Protonix 40mg from PO to IV BID (2) Weight loss: Plan: -Patient has recent history of poor oral intake which sounds like it is due to issues with taste from previous chemo/radiation -Has been followed by GI for these issues outpatient, could consider consulting if no improvements by tomorrow -Consulted dietitian to assist with nutrition - boost supplements TID (3) Nausea & vomiting: Plan: -Continue nausea meds PRN and add PPI (4) Hypokalemia: Plan: -Found to be 3.3 in ED, being repleted by ED staff -Likely due to hypo mag and recent nausea and diarrhea -Monitor AM BMP and mag (5) Hypomagnesemia: Plan: -Replaced/resolved (6) Depression: Plan: -Continue buspar and venlafaxine (7) GERD without esophagitis: Plan: and PUD w/ h/o h. pylori -Continue PPI therapy (8) Hyperlipidemia: Plan: -Continue statin therapy (9) Hypertension: Plan: -Antihypertensives pt was taking prior to hospitalization remain on hold -At this point, she doesn't need them Plan Pt also found to have pericardial effusion - reached out to cardiology to determine if further intervention is warranted for this or just surveillance. Remaining plan as outlined above. Repeat labs in AM. Plan d/w Dr. La. Admission and Anticipated Discharge Date Admission Date: November 25, 2021 Subjective Patient seen on rounds this afternoon. She is resting comfortably accompanied by in ER (remains there as a bed-hold). She reports on and off diarrhea that has resulted in dark loose stools, reports vague abdominal discomfort and poor appetite with recent weight loss. She had syncopal event yesterday striking her face off of the floor resulting in facial contusion and chin laceration. She Review of Systems Review of Systems: All systems reviewed and are unremarkable except as noted in HPI and below. Denies fever, chills, fatigue, headache, nasal congestion, sore throat, cough, chest pain, shortness of breath, palpitations, orthopnea, PND, v/d, constipation, dysuria, hematuria, frequency, back pain, joint pain or swelling, easy bruising or bleeding, skin lesions or rashes. Physical Exam Physical Exam: GENERAL: 61 yo Well-developed, well-nourished WF. NAD. LUNGS: Clear to auscultation bilaterally. No W/R/R. CARDIOVASCULAR: Normal S1, S2, marginally tachy ABDOMEN: Soft, mild diffuse abdominal discomfort. Nondistended. BS normoactive x 4 quad. EXTREMITIES: No edema. Non-tender. Peripheral pulses +2/4. NEUROLOGIC: A&O x3. Nonfocal PSYCHIATRIC: Cooperative. Appropriate mood and affect. SKIN: Warm, dry, intact. No rashes or lesions. Results & Data Results & Data ([facility]) Vital Signs (Past 12 Hours) Vital Signs Pulse Pulse Resp BP BP Pulse Ox O2 Del Method 11/26/21 16:00 100 H 15 110/77 11/26/21 15:30 116 H 18 11/26/21 15:00 94 H 13 11/26/21 14:57 110/77 11/26/21 14:57 100 H 20 11/26/21 14:35 148 H 21 11/26/21 14:35 137/93 11/26/21 14:34 132 H 15 11/26/21 14:34 115/85 11/26/21 14:30 104 H 18 11/26/21 14:00 106 H 19 11/26/21 13:30 118 H 19 11/26/21 13:00 99 H 15 11/26/21 12:30 96 H 18 11/26/21 12:00 23 11/26/21 11:30 101 H 21 11/26/21 11:08 100/75 11/26/21 11:08 130 H 24 100 11/26/21 11:04 119 H 30 H 100 11/26/21 11:04 104/82 11/26/21 11:02 105 H 17 100 11/26/21 11:02 103/75 11/26/21 11:00 122 H 32 H 95 11/26/21 10:30 112 H 16 99 11/26/21 10:00 108 H 24 95 11/26/21 09:36 98 H 24 100 11/26/21 09:00 134 H 20 94 11/26/21 08:30 105 H 17 100 11/26/21 08:14 96 H 17 98 11/26/21 08:14 117/75 11/26/21 08:13 99 11/26/21 08:00 95 H 16 117/75 99 Room Air Laboratory Results 11/26/21 08:00 11/26/21 08:00 PG Care Time/CCT Total # of Minutes Spent Total Time Spent with Patient: Total time spent is greater than 50% in coordination of care (as documented) at patient's floor/unit and/or counseling patient: Coding Level of Care Code 16723 Subseq Obs Care Lvl 3 Diagnoses Syncope R55 Weight loss R63.4 Nausea & vomiting R11.2 Hypokalemia E87.6 Hypomagnesemia E83.42 Depression F32.9 GERD without esophagitis K21.9 Hyperlipidemia E78.5 Hypertension I10
[2021-11-26 17:30] LABS: Hematocrit (blood only) 27.2 % (34.1-44.9); Hemoglobin 8.9 g/dl (12.0-16.0)
[2021-11-26] MEDS: traZODone HCL 100 MG TAB PO SCH (21:13)
[2021-11-26] MEDS: PANTOprazole 40 MG in SYRINGE 0 ML IV SCH (21:14)
--- NOTE | 2021-11-26 23:44 | Electrocardiogram Report ---
Test Reason : Blood Pressure : / mmHG Vent. Rate : 110 BPM Atrial Rate : 110 BPM P-R Int : 140 ms QRS Dur : 076 ms QT Int : 340 ms P-R-T Axes : 073 033 087 degrees QTc Int : 460 ms Sinus tachycardia with frequent Premature ventricular complexes Nonspecific ST and T wave abnormality Abnormal ECG When compared with ECG of 20-JUL-2019 12:18, Premature ventricular complexes are now Present Vent. rate has increased BY 44 BPM QT has lengthened Confirmed by Sea Lynn ([id number]) on 11/26/2021 11:44:30 PM Referred By: Confirmed By:Sea Lynn
[2021-11-27 07:03] LABS: Basophils # (auto) 0.04 K/uL (0-0.2); Basophils % (auto) 0.9 %; Eosinophils # (auto) 0.17 K/uL (0-0.50); Eosinophils % (auto) 3.9 %; Hematocrit (blood only) 25.9 % (34.1-44.9); Hemoglobin 8.5 g/dl (12.0-16.0); Immature Granulocytes # (auto) 0.02 K/uL (0.00-0.02); Immature Granulocytes % (auto) 0.5 %; Lymphocytes # (auto) 1.34 K/uL (1.2-3.4); Lymphocytes % (auto) 30.7 %; Mean Corpuscular Hemoglobin 30.4 pg (25.0-34.0); Mean Corpuscular Hgb Conc 32.8 g/dL (32.0-36.0); Mean Corpuscular Volume 92.5 fL (80.0-100.0); Mean Platelet Volume 10.9 fL (9.4-12.3); Monocytes # (auto) 0.71 K/uL (0.24-0.82); Monocytes % (auto) 16.3 %; Neutrophils # (auto) 2.08 K/uL (1.4-6.5); Neutrophils % (auto) 47.7 %; Platelet Count 239 K/uL (130-400); RDW Standard Deviation 51.1 fL (36.4-46.3); White Blood Count 4.36 K/ul (4.8-10.8)
[2021-11-27 07:41] LABS: BUN Creatinine Ratio 8.1 (10-20); Calcium 7.9 mg/dl (8.5-10.1); Creatinine Clr Calc Pharmacy 34.6 ml/min; Est GFR (Non-African American) 31.1 ml/min; Potassium 3.8 mmol/L (3.5-5.1)
[2021-11-27] MEDS: FENOFIBRATE NANOCRYSTALLIZED 145 MG TABLET PO SCH (08:23)
[2021-11-27] MEDS: busPIRone 5 MG TAB PO SCH (08:23)
[2021-11-27] MEDS: PANTOprazole 40 MG in SYRINGE 0 ML IV SCH (08:23)
[2021-11-27] MEDS: VENLAFAXINE HCL XR 150 MG CAPXR PO SCH (08:24)
[2021-11-27] MEDS: METOCLOPRAMIDE HCL 10 MG TABLET PO SCH (08:24)
[2021-11-27] MEDS: IPRATROPIUM BROMIDE NASAL SPRAY 0.06% 15ML NAE SCH (09:13)
--- NOTE | 2021-11-27 10:03 | Gastrointestinal Consultation ---
Date of Consultation November 27, 2021 Assessment & Plan (1) Weight loss: (2) Nausea & vomiting: Plan Discussed patient with Dr. Spear who advised on plan. - check h pylori stool antigen. - start carafate 1 gm qid. - continue reglan 10mg bid. - continue protonix 40mg bid. - she has had recent egd that was unremarkable only 4 months ago. stools just trace positive and hgb holding steady in the 8 range with normal BUN. egd likely to have low yield given how recent her last one was. Supervising Physician Co-Signing Physician Notes Agree with PARAM Garza as above Gen: Chronic ill-appearing, NAD Chest: CTA B/L, -w/r/r CVS: RRR Abd: Soft, NT, ND, +BS, -HSM Labs and radiology studies reviewed Continue current therapy and supportive care Carafate Added Stool studies ordered including H. pylori stool Ag History of Present Illness Reason for Consultation: anemia and heme positive stools Requesting Physician: Ирина Thompson PA-C Attending Physician: Reza La MD History of Present Illness Patient is a 61 year old female with a PMHx significant for previous palate and breast cancer S/P chemo and radiation in 2018, gastroparesis, persistent nausea/vomiting, GERD, weight loss, depression, anxiety, IGA nephropathy with stage 4 CKD, who presented to the [facility] on 11/25/21 with a chief complaint of syncope after trying to get herself to the bathroom in the middle of the night and subsequently fell and landed on her face causing laceration and dental issues. Per the patient and her , the patient has been having multiple falls at night while getting up to go to the bathroom. For the past 2-3 months she has had a change in her taste which has significantly decreased her appetite and causes her to have nausea and vomit when she eats. She has tried multiple different foods and boost shakes, including gastroparesis diet, and yet she still experiences nausea and vomiting. Over the last 2-3 months she has experienced an approximately 40 pound weight loss related to poor oral intake. She was recently seen in the outpatient clinic and given ongoing issues with intake and history of gastroparesis a tertiary referral was placed with motility clinic. She has been experiencing constipation and was using Linzess 290mcg daily until a few days ago when diarrhea developed. She went to a lower dose of linzess (145mcg) feeling it may have been dose related but still had issues so she stopped about 3 days ago. still having about 8 loose bowels a day. admits they are darker but have been for a few weeks now. she does not see any brbpr. yesterday her hgb was found to be in the 8 range and her stools were checked and were trace positive. she has not recieved any blood products but hgb has gone from 8.1 to 8.9 to 8.5. she denies any nsaid use. colo 10/02/[address] Spear shown diverticulosis and hemorrhoids. egd 07/24/21 dilation done, small hiatal hernia. rest of gi ros negative. Allergies Allergy/AdvReac Type Severity Reaction Status Date / Time No Known Drug Allergies Allergy NKDA Verified 11/25/21 12:19 Home Medications Medication Instructions Recorded Confirmed Type valacyclovir 1 gram tablet 1,000 mg PO DAILY PRN HSV #30 tabs 03/30/19 11/25/21 Rx diclofenac sodium 1 % topical gel 2 g topical QID PRN Pain #100 grams 10/17/19 11/25/21 Rx mupirocin calcium 2 % topical cream 1 applic topical BID PRN affected 05/20/20 11/25/21 Rx areas between affected toes #30 grams fenofibrate nanocrystallized 145 145 mg PO QAM #90 tabs 07/18/20 11/25/21 Rx mg tablet silver sulfadiazine 1 % topical 1 applic topical BID PRN wound 09/22/20 11/25/21 Rx cream (Silvadene) healing #400 grams omeprazole 40 mg capsule,delayed 40 mg PO QAM #90 caps 01/16/21 11/25/21 Rx release lisinopril 10 mg tablet 5 mg PO QAM #90 tabs 03/26/21 11/25/21 Rx trazodone 100 mg tablet 200 mg PO HS #180 tabs 04/13/21 11/25/21 Rx verapamil 40 mg tablet 20 mg PO QAM #90 tabs 05/11/21 11/25/21 Rx venlafaxine 150 mg 150 mg PO QAM #90 caps 06/01/21 11/25/21 Rx capsule,extended release 24 hr promethazine 25 mg tablet 25 mg PO Q6H PRN Nausea #90 tabs 10/01/21 11/25/21 Rx linaclotide 145 mcg capsule 290 mcg PO DAILY PRN Abdominal 10/16/21 11/25/21 Rx (Linzess) Discomfort #90 caps metoclopramide HCl 10 mg tablet 10 mg PO BID nausea and vomiting 10/16/21 11/25/21 History (Reglan) buspirone 5 mg tablet 5 mg PO BID 11/25/21 11/25/21 History doxycycline hyclate 100 mg capsule 100 mg PO .ON HOLD Acne 11/25/21 11/25/21 History halobetasol propionate 0.05 % 1 applic topical BID PRN FLARE UPS 11/25/21 11/25/21 History topical ointment ipratropium bromide 21 mcg (0.03 2 spray intranasal DAILY PRN .. 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, radiation Psoriatic arthritis hx of- on Cimzia in the past but d/'philip after adenocarcinoma of palate Raynaud's phenomenon without gangrene Sensorineural hearing loss (SNHL) of left ear with restricted hearing of right ear Tachycardia HAPPENED X1 PER PATIENT NONE SINCE Thyroid nodule Surgical History History of Achilles tendon repair x4--right foot--hardware in place History of Achilles tendon repair x1 on left History of carpal tunnel surgery of right wrist History of cholecystectomy History of colonoscopy with polypectomy History of dilatation and curettage History of esophageal dilatation History of esophagogastroduodenoscopy (EGD) History of hysterectomy History of lumpectomy of right breast 2003 (malignant)/2005 (benign) History of open reduction and internal fixation (ORIF) procedure right wrist--hardware removed History of phacoemulsification of cataract of both eyes with intraocular lens implantation History of right breast biopsy History of surgery excision of cancer of soft palate History of tonsillectomy S/P laminectomy (07/25/19) L5-S1 laminectomy on the right with medial fasciotomy by Dr. Richter for L disc herniation Status post biopsy of kidney Status post biopsy of thyroid gland benign nodule Family History Mother Family history of diabetes mellitus Myocardial infarction Sister Family history of diabetes mellitus Grandfather (Paternal) Family history of diabetes mellitus Grandmother (Paternal) Family history of diabetes mellitus Aunt Family history of diabetes mellitus Uncle Family hx of colon cancer Unknown Sinusitis Hypertension Cardiac disorder Cancer Colon cancer Lymphoma Myocardial infarction Father Lymphoma Other No family history of adverse response to anesthesia Denies family history of Ovarian cancer Prostate cancer Breast cancer Social History Smoking Status: Former smoker Smoking End Date: 1994; Second Hand Exposure: No (mom smoked); Hx Alcohol Use: Yes Alcohol type: beer Alcohol Intake Frequency: Monthly or Less Hx Substance Use: Yes Prescribed Medications: Marijuana Last Used Substance: Days (ago) Last Used Substance Other:: 2 Substance Use Type Other:: Medical Marijuana Preferred Language: Armenian Communication Ability: Effective Visual Impairment: No Limitations Hearing Ability: Normal 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 Beliefs That Will Affect Care: None marital status: Current Living Situation: Spouse current occupational status: disabled Other Information That Helps Us Care for You: No Feels Safe at Home: Yes Safety Concerns: Feels Safe At This Time Childhood Exposure to Second-Hand Smoke: Yes Dental Care, Regularly: Yes Physical Activity Frequency: Does not Exercise Seatbelt Use: always Sunscreen Use: Yes Assistive Devices: Walker and Wheelchair Review of Systems Review of Systems: All systems reviewed & are unremarkable except as noted in HPI & below Constitutional: + fatigue, + weakness and + weight loss Physical Exam Constitutional: WD/WN, vitals as above Eyes: + anicteric sclerae and PERRL ENMT: external ear and nose normal, oropharynx normal Respiratory: normal respiratory effort, lungs clear to auscultation Cardiovascular: RRR, no murmur, no edema Gastrointestinal (Abdomen): mild diffuse tenderness, no guarding, soft, normal bowel sounds. Skin: no rashes, warm and dry Psychiatric: A+Ox3, euthymic affect Results & Data ([facility]) Vital Signs (Past 12 Hours) Vital Signs Pulse Resp BP Pulse Ox O2 Del Method 11/27/21 08:25 106 H 16 92/56 L 97 11/27/21 07:49 100 H 18 98 Room Air 11/27/21 06:24 126 H 24 95/60 L 98 Room Air 11/26/21 23:23 107 H 16 122/77 96 Room Air PG Care Time/CCT Total # of Minutes Spent Total Time Spent with Patient: Total time spent is greater than 50% in coordination of care (as documented) at patient's floor/unit and/or counseling patient: Coding Level of Care Code 49014 Office/OBS Consult Lvl 4 Diagnoses Weight loss R63.4 Nausea & vomiting R11.2
[2021-11-27] MEDS: ACETAMINOPHEN 325 MG TAB PO PRN ×2 (12:05→17:38)
[2021-11-27] MEDS: oxyCODONE HCL IR 5 MG TAB (IMMEDIATE RELEASE) PO PRN ×2 (12:05→17:38)
[2021-11-27] MEDS: SUCRALFATE 1 GM/10 ML UDC PO SCH ×2 (14:25→18:23)
[2021-11-27 17:32] VITALS: BP 100/62; PULSE 100; O2SAT 97
--- NOTE | 2021-11-27 18:19 | Discharge Summary ---
Date of Service November 27, 2021 Admission HPI Per Admitting Provider Dedra is a 61 year old female with a PMH significant for previous palate and breast cancer S/P chemo and radiation in 2018, gastroparesis, persistent nausea/vomiting, GERD, weight loss, depression, anxiety, IGA nephropathy with stage 4 CKD, who presented to the [facility] on 11/25/21 with a chief complaint of syncope. Per the patient and her , the patinet has been experiencing multiple falls at night while getting up to go to the bathroom. For the past 2-3 months she has had a change in her taste which has significantly decreased her appetite and causes her to vomit the majority of time when she eats. She has tried multiple different foods and boost shakes, of which, she still experiences nausea and vomiting. Over the last 2-3 months she has experienced an approximately 40 pound weight loss. She has been experiencing constipation for which she has been taking Linzess. For the past week she has been experiencing diarrhea so she stopped taking it approximately 2-3 days ago. When asked, she experiencing lightheadedness/dizziness if she changes position too quickly, stands too quickly, or doesn't take her time walking to the bathroom. She normally uses a walker her got her to ambulate to the bathroom but didn't use it last night. When she lost consciousness she hit her face on her bathroom tile. She denies experiencing chest pain, SOB, or palpitations prior to or after her syncopal episodes. Her found her on the bathroom floor and denies seizure like activity, she denies any post-ictal states after her episodes. She was last seen in the [facility] on 11/16/21; per their note they recommended CT of the chest/abd/pelvis, baseline labs, and a referral to the GI motility clinic in [facility]. In the ED, the patient was found to be afebrile, hemodynamically stable, and stable on room air. She was found to be hypokalemic at 3.3 and to have hypomagnesemia at 1.4. CT cervical spine, face, and head were negative for acute trauma. CTA of the chest was negative for PE and acute trauma, follow-up CT was recommended in 3-months for a subpleural opacity in the right lower lobe. The patient was given 1L NSS bolus, pain control, and magnesium + potassium supplementation. Principal Diagnosis 1. Syncope-likely orthostatic hypotension 2. Anemia with trace heme positive stool-stable 3. Pericardial effusion Discharge Exam GENERAL: 61 yo Well-developed, well-nourished WF. NAD. LUNGS: Clear to auscultation bilaterally. No W/R/R. CARDIOVASCULAR: RRR ABDOMEN: Soft, mild diffuse abdominal discomfort. Nondistended. BS normoactive x 4 quad. EXTREMITIES: No edema. Non-tender. Peripheral pulses +2/4. NEUROLOGIC: A&O x3. Nonfocal PSYCHIATRIC: Cooperative. Appropriate mood and affect. SKIN: Warm, dry, intact. No rashes or lesions. Discharge Data Allergies Allergy/AdvReac Type Severity Reaction Status Date / Time No Known Drug Allergies Allergy NKDA Verified 11/25/21 12:19 Consultations 11/25/21 10:10 ED Decision to Admit Stat 11/26/21 16:43 Consult Gastroenterology Routine Ordered Studies Chest CTA 11/25/21 06:40 CT ANGIOGRAPHY OF THE CHEST, PULMONARY EMBOLUS PROTOCOL CLINICAL HISTORY: [place]. COMPARISON STUDY: Chest CT November 23, 2021. PET/CT December 26, 2017. TECHNIQUE: Following IV administration of 120 mL of Optiray, helical axial images of the chest were obtained utilizing the pulmonary embolus protocol. Maximal intensity projections and sagittal and coronal reformats were viewed on an independent 3D workstation. IV contrast was administered without complication. Automated exposure control was utilized for the study. A dose lowering technique was utilized adhering to the principles of ALARA. FINDINGS: No pulmonary emboli are identified. There is no thoracic aortic dissection. There is a trace pericardial effusion. No enlarged thoracic lymph nodes are present. Central airways are patent. Note is made of a 2.2 x 1.1 cm irregular subpleural opacity within the right lower lobe on axial image 94 of 278. This is new since PET/CT of December 26, 2017. No pneumothorax or pleural effusion is present. No acute fracture is identified within visualized portions of the bony thorax. There are several old bilateral rib fractures. Diffuse sclerosis of visualized skeletal structures is similar to PET/CT of December 26, 2017. IMPRESSION: 1. No pulmonary emboli identified. 2. No acute traumatic findings within the chest. 3. 2.2 x 1.1 cm irregular subpleural opacity within the right lower lobe. This is new since PET/CT of December 26, 2017. Scarring is favored. A neoplastic etiology is within the differential although considered less likely. Short-term follow-up chest CT in 3 months is recommended for reassessment. 4. Sclerosis of visualized skeletal structures. Given stability since PET/CT of December 26, 2017, a metabolic etiology is favored. Neoplastic process is considered less likely. ACT 112: Negative or not required by law. Electronically signed by: Olman Osei M.D. 11/25/2021 9:[address] 11/25/21 06:49 CT facial bones wo con CLINICAL HISTORY: Trauma TECHNIQUE: Multidetector row helical CT of the maxillofacial bones was performed without administration of intravenous contrast, and processed with bone and soft tissue algorithms. Coronal and sagittal reformations were obtained. Automated dose lowering techniques and/or adjustment according to patient size were utilized for this exam. Comparison: None available at the time of this dictation. FINDINGS: Nasal bones are normal. The mandible is intact. The temporomandibular joints are anatomically aligned. There is suggestion of defects in a few teeth, particularly incisors. Zygomatic arches are intact. The globes are normal and symmetric, without proptosis, obvious disruption or lens dislocation. There is no orbital radiopaque foreign body. The orbital dudley are intact. The retrobulbar fat is without evidence of disruption. Extraocular muscles are normal and symmetric. Optic nerve sheath complexes are normal in course and caliber. Imaged portions of the paranasal sinuses and mastoid air cells are clear. IMPRESSION: No acute fracture of the facial bones. There is suggestion of defect of the incisors compatible with clinical history of chipped tooth. The temporal mandibular joints are normally aligned. ACT 112: Negative or not required by law. Electronically signed by: Adonay Stahl M.D. 11/25/2021 8:[address] 11/25/21 06:49 CT head/brain wo con CLINICAL HISTORY: Trauma Technique: Contiguous axial CT images of the head were acquired from the base of the skull to the vertex without intravenous contrast administration. Images were viewed in brain, subdural and bone windows. Automated dose lowering techniques and/or adjustment according to patient size were utilized for this exam. Comparison: None available at the time of this dictation. Findings: The ventricles, basal cisterns, and cerebral sulci are normal. There is no acute intracranial hemorrhage or evidence of acute territorial infarction. Neither mass effect, shift of the midline structures, nor abnormal extra-axial fluid collections are shown. Imaged portions of the paranasal sinuses and mastoid air cells are clear. The orbits appear normal. There are no acute fractures of the calvaria or scalp swelling. Impression: No acute intracranial hemorrhage, no evidence of acute territorial infarction or other acute intracranial disease process. ACT 112: Negative or not required by law. Electronically signed by: Adonay Stahl M.D. 11/25/2021 8:[address] 11/25/21 06:51 CT OF THE CERVICAL SPINE WITHOUT CONTRAST CLINICAL HISTORY: Trauma. COMPARISON STUDY: MRI of the cervical spine October 10, 2017. TECHNIQUE: Helical axial images of the cervical spine were obtained without IV contrast. Sagittal and coronal reconstructions were viewed. Automated exposure control was utilized for the study. A dose lowering technique was utilized adhering to the principles of ALARA. FINDINGS: There is mild reversal of the normal cervical lordosis. Vertebral body heights are maintained. No acute cervical spine fracture or subluxation is present. There is no prevertebral edema. Facet joints are intact. Moderate multilevel degenerative changes are present. Diffuse sclerosis of the visualized skeletal structures is noted. IMPRESSION: 1. No acute cervical spine fracture or subluxation. 2. Diffuse sclerosis of visualized skeletal structures. Although nonspecific, this is similar to prior imaging studies and therefore is likely metabolic. A neoplastic etiology is within the differential but considered less likely. ACT 112: Negative or not required by law. Electronically signed by: Olman Osei M.D. 11/25/2021 8:44 AM Hospital Course (1) Syncope: -Placed in observation to monitored bed -Syncope possibly d/t orthostatic hypotension from poor oral intake, recent diarrhea, and still taking antihypertensives -No other signs of seizure or cardiac symptoms -Echo performed, moderate pericardial effusion -Orthostatics first set positive and repeat negative -Tylenol and OxyIR for pain from recent facial trauma - can continue apap as outpatient AVOID NSAIDs -Hgb dropped from 10.5 to 8.1 overnight - concern for GI blood loss of which could be causing orthostasis * rectal exam performed at bedside trace heme positive-serial H&Hs remain in the 8s w/o symptoms * GI consult ordered and pt seen today, no plans for EGD as last one done in July 2021, will follow as outpatient * Increased PPI to BID - would continue to do this as an outpatient at least x2 weeks * GI added Carafate 1g QID - will change to AC and rx provided -Ultimately believe that her syncope was due to orthostatic hypotension d/t dehydration + taking still taking anti-hypertensives (which have since been stopped) (2) Weight loss: -Patient has recent history of poor oral intake which sounds like it is due to issues with taste from previous chemo/radiation -Has been followed by GI for these issues outpatient -Consulted dietitian to assist with nutrition - boost supplements TID -Follow up with GI as outpatient (3) Nausea & vomiting: -Continue nausea meds PRN and PPI (4) Hypokalemia: -Found to be 3.3 in ED, being repleted by ED staff -Likely due to hypo mag and recent nausea and diarrhea -Monitor AM BMP and mag (5) Hypomagnesemia: -Replaced/resolved (6) Depression: -Continue buspar and venlafaxine (7) GERD without esophagitis: and PUD w/ h/o h. pylori -Continue PPI therapy (8) Hyperlipidemia: -Continue statin therapy (9) Hypertension: -Antihypertensives pt was taking prior to hospitalization remain on hold -At this point, she doesn't need them so will stop upon discharge Plan Patient is medically stable at this time, will require follow up with cardiology to monitor pericardial effusion. Has a h/o rheumatologic issues which could be driving the effusion. Pt will need to follow up with her family doctor within 1 week. Blood work to f/u on H&H within a week, results to be forwarded to pcp. Plan has been d/w Dr. La who is in agreement. Total Time Total Time Spent Total Time Spent (In Minutes): <30 minutes Discharge Plan Discharge Items Patient Disposition: Home - Self-Care Reason For Visit: SYNCOPE Discharge Diagnosis: passed out - suspect due to dehydration low blood counts fluid around heart Activity: Resume your previous activity Non-emergency contact: Primary Care Provider Call non-emergency contact if: you have any medication questions Follow-up/Referrals: Harvey Spear DO [Physician] - Sea Lynn MD [Physician] - (1 week for pericardial effusion) Danilo Freeman DO [Primary Care Provider] - Diet: Regular Ambulatory Orders: Complete Blood Count no Diff (Routine) Timeframe: 1 Week Location: Determined by Patient Ordered By: Ирина Thompson Addtl Attending Provider Instructions: You were hospitalized due passing out which resulted in a fall and injury to your face. You were found to have low blood count which prompted a rectal exam which found that you had trace amount of blood in your stool. You are currently already taking Omeprazole to help reduce stomach acid. I recommend that you start taking this medication twice a day (morning and evening) for at least the next 2 weeks. You are also being treated with Carafate with meals to also help coat your stomach. You will be set up on Tuesday for a follow up appointment with cardiology to follow up on the fluid around your heart. It is recommended that you have follow up blood work in 1 week to recheck your blood count levels. Results will be forwarded to your primary care provider who you will need to call and follow up with within 1 week of discharge. We are stopping your blood pressure medication as this likely contributed to your fall (low blood pressure). Follow up for suture removal within 7 days. Follow up with Dr. Spear as scheduled. If you have any questions after you are discharged, call the nonemergency number. In event of a medical emergency, call 911. Pending Studies at Discharge: No Stand-Alone Forms: My [facility] Money On Mobile, Smoking Cessation Medications and DC Order Prescriptions: New sucralfate [Carafate] 1 gram tablet 1 g PO AC Qty: 90 0RF Continued valacyclovir 1 gram tablet 1,000 mg PO DAILY PRN (Reason: HSV) Qty: 30 5RF mupirocin calcium 2 % cream 1 applic TOPICAL BID PRN (Reason: affected areas between affected toes) Qty: 30 1RF fenofibrate nanocrystallized 145 mg tablet 145 mg PO QAM Qty: 90 1RF omeprazole 40 mg capsule,delayed release(DR/EC) 40 mg PO QAM Qty: 90 3RF trazodone 100 mg tablet 200 mg PO HS Qty: 180 3RF venlafaxine 150 mg capsule,extended release 24hr 150 mg PO QAM Qty: 90 1RF promethazine 25 mg tablet 25 mg PO Q6H PRN (Reason: Nausea) Qty: 90 3RF diclofenac sodium 1 % gel 2 g TOPICAL QID PRN (Reason: Pain) Qty: 100 0RF metoclopramide HCl [Reglan] 10 mg tablet 10 mg PO BID silver sulfadiazine [Silvadene] 1 % cream 1 applic topical BID PRN (Reason: wound healing) Qty: 400 1RF Rx Instructions: apply a 1.5 mm thickness buspirone 5 mg tablet 5 mg PO BID Rx Instructions: TAKE 1 TABLET BY MOUTH TWICE A DAY doxycycline hyclate 100 mg capsule 100 mg PO .ON HOLD halobetasol propionate 0.05 % ointment 1 applic topical BID PRN (Reason: FLARE UPS) ipratropium bromide 21 mcg (0.03 %) spray,non-aerosol 2 spray intranasal DAILY PRN (Reason: ..) Rx Instructions: administer into each nostril Discontinued lisinopril 10 mg tablet 5 mg PO QAM Qty: 90 1RF verapamil 40 mg tablet 20 mg PO QAM Qty: 90 1RF Linzess 145 mcg capsule 290 mcg PO DAILY PRN (Reason: Abdominal Discomfort) Qty: 90 3RF Discharge Orders: Discharge Order (Routine); Ordered 11/27/21 Ordered By: Ирина Thompson Admission Data Admit Date/Time: 11/25/21 10:52 Attending Provider: Reza La Admit Provider: Abilio Interiano Primary Care Provider: Danilo Freeman Other Providers: Abilio Interiano ; Regino Mercer Coding Level of Care Code 56468 OBS Care - Discharge Diagnoses Syncope R55 Weight loss R63.4 Nausea & vomiting R11.2 Hypokalemia E87.6 Hypomagnesemia E83.42 Depression F32.9 GERD without esophagitis K21.9 Hyperlipidemia E78.5 Hypertension I10
== END 2021-11-27 18:47 | disposition home or self-care (01) ==
LOC: ED 05:41 → EDINP 05:41 → SUATTDRO 10:52 → EDINP 16:39
DX: I31.3 Pericardial effusion (noninflammatory); Z82.49 Family history of ischemic heart disease and other diseases of the circulatory system; R55 Syncope and collapse; Z87.891 Personal history of nicotine dependence; S01.80XA Unspecified open wound of other part of head, initial encounter; R63.4 Abnormal weight loss; E83.42 Hypomagnesemia; Z83.3 Family history of diabetes mellitus; E87.6 Hypokalemia; R11.2 Nausea with vomiting, unspecified; Z80.0 Family history of malignant neoplasm of digestive organs; S02.5XXA Fracture of tooth (traumatic), initial encounter for closed fracture; Z85.3 Personal history of malignant neoplasm of breast; W19.XXXA Unspecified fall, initial encounter; Y92.002 Bathroom of unspecified non-institutional (private) residence as the place of occurrence of the external cause